=== PATIENT | female | born 1985 | race African-American/Black ===

== ENCOUNTER 2023-03-27 08:50 | Emergency (ER) | payer SELFPAY ==
--- OUTSIDE RECORDS SUMMARY | 2023-03-27 08:54 | XMS REPORT | Continuity of Care Document ---
:1985 Author Organization [facility] t Address [address] [place] [address] Care Team Providers Name Role Phone NONE, NONE Primary Care Physician Unavailable LUZ ELENA, DR CHURCHILL Attending Clinician Unavailable OLGA, DR JUSTIN Attending Clinician Unavailable Yann Attending Clinician Unavailable CHUCHO, DR SHANNAN Blood Attending Clinician Unavailable VICTOR M, DR ULIS CARLOS Deras Attending Clinician Unavailable , DR BERMUDEZ Attending Clinician Unavailable JAVIER, DR GAY Attending Clinician Unavailable RADHA YOO Attending Clinician Unavailable LUZ ELENA, DR CHURCHILL Admitting Clinician Unavailable OLGA, DR JUSTIN Admitting Clinician Unavailable Yann Admitting Clinician Unavailable CHUCHO, DR SHANNAN Blood Admitting Clinician Unavailable DR LUIS CARLOS DOW Admitting Clinician Unavailable , DR BERMUDEZ Admitting Clinician Unavailable JAVIER, DR GAY Admitting Clinician Unavailable RADHA YOO Admitting Clinician Unavailable Payers Payer Name Policy Type Policy Number Effective Date Expiration Date S ource 0700 [id number] 2022 00:00:00 0777 [id number] 1959 00:00:00 0450 [id number] 2018 00:00:00 Problems This patient has no known problems. Allergies, Adverse Reactions, Alerts Allergy Allergy Status Severity Reaction(s) Onset Inactive Treating Comm ents Source Name Type Date Date Clinician No Known DA Active Unknown [facility] 11-07 Medical Allergie 00:00: Center s 00 Medications This patient has no known medications. Vital Signs Vital Name Observation Time Observation Value Comments Source Height 2022-04-02 17:51:00 165.1 CM Weight 2022-04-02 17:51:00 93.89 KG Height 2022-01-30 10:45:00 165.1 CM Weight 2022-01-30 10:45:00 90.71 KG Height 2020-10-11 11:44:00 165.1 CM Weight 2020-10-11 11:44:00 93.44 KG Height 2020-07-17 11:30:00 165.1 CM Weight 2020-07-17 11:30:00 89.35 KG Height 2020-02-04 12:15:00 167.64 CM Weight 2020-02-04 12:15:00 81.64 KG Height 2019-07-04 09:46:00 165.1 CM Weight 2019-07-04 09:46:00 82.1 KG Height 2019-05-01 10:51:00 165.1 CM Weight 2019-05-01 10:51:00 81.19 KG Procedures This patient has no known procedures. Encounters Start End Encounter Admission Attending Care Care Encounter Source Date/Time Date/Time Type Type Clinicians Facility Department ID 2022-04-02 2022-04-02 Outpatient E LUZ ELENA, [facility] [id number] [facility] 17:17:00 21:05:00 ZHAO Cha [facility] 2022-01-30 2022-01-31 Outpatient E OLGA, [facility] [id number] [facility] 10:41:00 13:00:00 NHAN Medic al [place] 2021-06-21 2021-06-21 Outpatient Lezak_Kayla PAHOP [facility] [id number] [place] 00:00:00 00:00:00 [id number] [facility] 2021-06-19 2021-06-19 Outpatient Lezak_Kayla MEHOP [facility] 115 [id number]- [place] 04:42:00 04:42:00 [facility] 2021-06-15 2021-06-15 Outpatient Lezak_Kayla MEHOP [facility] 115 [id number]- [place] 04:28:00 04:28:00 [facility] 2021-06-132021-06-13 Outpatient Yann COLESHOP [facility] [id number] [place] 03:39:00 03:39:00 [facility] 2021-05-30 2021-05-30 Outpatient Yann LOO [facility] [id number] [place] 04:21:00 04:21:00 [facility] 2020-11-08 2020-11-08 Outpatient Yann PAHOP [facility] [id number] [place] 02:34:00 02:34:00 [id number] [facility] 2020-10-11 2020-10-11 Outpatient E CHUCHO [facility] [id number] [facility] 11:40:00 13:22:00 [facility] [place] 2020-07-17 2020-07-17 Outpatient E CHUCHO [facility] [id number] [facility] 11:26:00 13:50:00 [facility] [place] 2020-02-04 2020-02-04 Outpatient E VICTOR M, [facility] [id number] [facility] 12:11:00 12:55:00 LUIS CARLOS [facility] [place] 2019-07-04 2019-07-04 Outpatient E SHEIKH [facility] [id number] [facility] 09:40:00 15:56:00 WASIM [facility] [place] 2019-05-01 2019-05-01 Outpatient E VICTOR M [facility] [id number] [facility] 10:48:00 12:04:00 LUIS CARLOS [facility] [place] 2019-01-20 2019-01-20 Outpatient E VICTOR HUGO HERRERA [facility] [id number] [facility] 21:09:00 22:15:00 [facility] [place] 2018-10-02 2018-10-02 Emergency E [facility] [id number] [facility] 12:06:00 12:06:00 Results Test Description Test Time Test Comments Results Result [facility] e Comments XR CHEST 2 VIEW 2022-04-02 *OW* 18:54:45 [facility] CENTERName: JOHAN ADAME : 1985 Sex: F EXAM: CHEST 2 VIEWSINDICATION: PainCOMPARISON: None availableTECHNIQUE: PA and lateral views of the chest.FINDINGS: The cardiomediastinal silhouette is normal. The lungs are clear bilaterally. No pneumothorax or pleural effusion is identified. The osseous structures are unremarkable.IMPRESSION : No acute cardiopulmonary process.LOCATION: [id number] signed by: Yue Luong MD 04/02/2022 6:54 PM [employer] SARS-CoV (RAPID ANTIGEN) WH 2022-04-02 18:23:00 Test Item Value Reference Range Interpretation Comme nts SARS-CoV (ANTIGEN) (test code = NEGATIVE NEGATIVE COVAG) COVID AG (test code = COVAGC) This test has been marketed under the FDA Emergency Use Authorization (EUA) to meet challenges of the COVID-19 pandemic. The validation standards normally enforced by the FDA and the [employer] of the [place] [employer] (CAP) are more stringent than those required for this test. Therefore, the result should be interpreted with caution and close attention to other clinical and epidemiological data INFLUENZA A AND B OW2022-04-02 18:21:00 Test Item Value Reference Range Interpretation Comments INFLUENZ A (test code = INFA) NEGATIVE NEGATIVE INFLUENZ B (test code = INFB) NEGATIVE NEGATIVE SARS-CoV (RAPID ANTIGEN) WH2022-01-30 11:37:00 Test Item Value Reference Range Interpretation Comments SARS-CoV (ANTIGEN) NEGATIVE NEGATIVE (test code = COVAG) COVID AG (test This test has been code = COVAGC) marketed under the FDA Emergency Use Authorization (EUA) to meet challenges of the COVID-19 pandemic. The validation standards normally enforced by the FDA and the [employer] the [place] [employer] (CAP) are more stringent than those required for this test. Therefore, the result should be interpreted with caution and close attention to other clinical and epidemiological data TROPONIN I OW2022-01-30 11:35:00 Test Item Value Reference Range Interpretation Comments TROPONIN I (test <0.05 ng/mL See_Comment [Automated message] code = GTPI) The system [employer] generated this result transmitted ref erence range: <=0.05. The reference range was not used to int erpret this result as normal/abnormal . MetyLyte 8 Panel *OW* [id number] 11:29:00 Test Item Value Reference Range Interpretation Comments GLUCOSE (test code = GGUL) 100 mg/dL 73-118 BUN (test code = GBUN) 7 mg/dL 7-22 CREATININE (test code = GCRE) 1.0 mg/dL 0.6-1.2 CK TOTAL (test code = GCK) 87 U/L 30-190 SODIUM (test code = GNA+) 137 mmol/L 128-145 POTASSIUM (test code = GK+) 3.7 mmol/L 3.6-5.1 CHLORIDE (test code = GCL-) 102 mmol/L 98-108 TCO2 (test code = GTC02) 27 mmol/L 18-33 URINE OW2022-01-30 11:29:00 Test Item Value Reference Range Interpretation Comments PREG UR (test code = PGU) Negative NEGATIVE DRUGS OF ABUSE*OW*2022-01-30 11:23:00 Test Item Value Reference Range Interpretation Comments DRUG SCRN (test code URINE DRUG SCREEN = HDOA) This is an unconfirmed screening result and should not be used for non-medical purposes PHENCYCLID (test Negative NEGATIVE code = GPCP) BENZODIAZE (test Negative NEGATIVE code = GBZO) COCAINE (test code = Negative NEGATIVE GCOC) AMPHETAMIN (test Negative NEGATIVE code = GAMP) THC (test code = Positive NEGATIVE A GTHC) OPIATES (test code = Negative NEGATIVE BRITNEY) BARBITURAT (test Negative NEGATIVE code = GBAR) TCA (test code = Negative NEGATIVE GTCA) DOAH (test code = URINE DRUG DOAH) SCREEN CUT OFF VALUES Amphetamines 1000 ng/mL Barbituates 300 ng/mL Benzodiazepines 300 ng/mL Cocaine 300 ng/mL Opiates 300 ng/mL Phencyclidine 25 ng/mL THC 50 ng/mL Tricyclic Antidepressants 1000 ng/mL URINALYSIS W/O MICROSCOPICOW2022-01-30 11:23:00 Test Item Value Reference Range Interpretation Comments COLOR (test code = Yellow YELLOW COLU) CLARITY (test code = Clear CLEAR CLA) GLUCOSE UR (test Negative NEGATIVE code = UA GLUCOSE) BILI UR (test code = Negative NEGATIVE BILE) KETONES UR (test Negative NEGATIVE code = DEJAH) SP GRAVITY (test 1.025 1.005-1.030 code = SPGR) PH UR (test code = 6.5 4.5-8.0 PH) PROTEIN UR (test Negative NEGATIVE code = PU) NITRITE UR (test Negative NEGATIVE code = NITRITE) UROBIL UR (test code 0.2 E.U./dL = GUROQ) UROBIL UR (test code UROBILINOGEN = GUROQC) REFERENCE RANGE 0.2 - 1.0 EU/dL BLOOD UR (test code 3+ NEGATIVE A = UA BLOOD) LEUK ES UR (test Negative NEGATIVE code = LEUK) CBC (INCLUDES AUTOMATED DIFFERENTIAL) *2022-01-30 11:22:00 Test Item Value Reference Range Interpretation Comments WBC (test code = WBC) 5.9 10\S\3/uL 4.5-11.0 RBC (test code = RBC) 4.22 10\S\6/uL 4.30-5.70 L HGB (test code = HBG) 11.5 g/dL 12.0-15.5 L HCT (test code = HCT) 36.0 % 35.0-44.0 MCV (test code = MCV) 85.4 fL 81.0-99.0 MCH (test code = MCH) 27.3 pg 27.0-31.0 MCHC (test code = MCHC) 31.9 g/dL 32.0-36.0 L RDW (test code = RDW) 15.4 % 11.5-14.5 H PLT (test code = PLT) 300 10\S\3/uL 130-400 MPV (test code = OMPV) 7.7 fL 6.2-10.2 NEUTROP # (test code = NE#) 3.4 10\S\3/uL 1.6-8.0 LYMPH # (test code = LY#) 1.9 10\S\3/uL 1.1-3.5 MID # (test code = GMID#) 0.6 10\S\3/uL 0.0-1.1 GRAN % (test code = GRA%) 58.0 % 35.0-73.0 LYMPH % (test code = GLY%) 32.0 % 20.0-55.0 MID % (test code = GMID%) 10.0 % 0.0-10.0 D-DIMER TRIAGE OW2020-10-11 13:08:00 Test Item Value Reference Range Interpretation Comments D-DIMER (test code 179 ng/mL D-DU See_Comment [Autom ated message] = GDDI) The system [employer] generated this result transmitted ref erence range: <=599. T he reference range was not used to int erpret this result as normal/abnormal . D-DIMER COMMENT *Level to rule (test code = out DVT or PE: DDCOM) <235 ng/mL D-DU* TROPONIN I OW2020-10-11 13:00:00 Test Item Value Reference Range Interpretation Comments TROPONIN I (test code = A84) <0.050 ng/mL 0.000-0.050 MetyLyte 8 Panel *OW* [id number] 12:52:00 Test Item Value Reference Range Interpretation Comments GLUCOSE (test code = GGUL) 93 mg/dL 73-118 BUN (test code = GBUN) 10 mg/dL 7-22 CREATININE (test code = GCRE) 1.0 mg/dL 0.6-1.2 CK TOTAL (test code = GCK) 69 U/L 30-190 SODIUM (test code = GNA+) 140 mmol/L 128-145 POTASSIUM (test code = GK+) 3.8 mmol/L 3.6-5.1 CHLORIDE (test code = GCL-) 107 mmol/L 98-108 TCO2 (test code = GTC02) 28 mmol/L 18-33 GENERAL CHEMISTRY 13 *OW* [id number] 12:52:00 Test Item Value Reference Range Interpretation Comments GLUCOSE (test code = GGUL) 93 mg/dL 73-118 BUN (test code = GBUN) 10 mg/dL 7-22 CREATININE (test code = GCRE) 1.0 mg/dL 0.6-1.2 URIC ACID (test code = GUA) 2.7 mg/dL 2.2-6.6 CALCIUM (test code = GCL+) 9.3 mg/dL 8.0-10.3 ALBUMIN (test code = GALB) 3.3 g/dL 3.5-5.5 L PROTEIN (test code = GTP) 6.3 g/dL 6.4-8.1 L ALT (test code = GALT) 7 U/L 10-47 L AST (test code = TIFFANI) 16 U/L 11-38 ALK PHOS (test code = GALP) 54 U/L 42-141 BILI TOTAL (test code = GTBIL) 0.4 mg/dL 0.2-1.6 GGT (test code = GGGT) 8 U/L 5-65 AMYLASE (test code = GAMY) 35 U/L 14-97 CBC (INCLUDES AUTOMATED DIFFERENTIAL) *2020-10-11 12:42:00 Test Item Value Reference Range Interpretation Comments WBC (test code = WBC) 7.2 10\S\3/uL 4.5-11.0 RBC (test code = RBC) 4.42 10\S\6/uL 4.30-5.70 HGB (test code = HBG) 12.7 g/dL 12.0-15.5 HCT (test code = HCT) 40.6 % 35.0-44.0 MCV (test code = MCV) 91.9 fL 81.0-99.0 MCH (test code = MCH) 28.7 pg 27.0-31.0 MCHC (test code = MCHC) 31.3 g/dL 32.0-36.0 L RDW (test code = RDW) 14.6 % 11.5-14.5 H PLT (test code = PLT) 258 10\S\3/uL 130-400 MPV (test code = OMPV) 7.6 fL 6.2-10.2 NEUTROP # (test code = NE#) 4.7 10\S\3/uL 1.6-8.0 LYMPH # (test code = LY#) 1.7 10\S\3/uL 1.1-3.5 MID # (test code = GMID#) 0.8 10\S\3/uL 0.0-1.1 GRAN % (test code = GRA%) 65.6 % 35.0-73.0 LYMPH % (test code = GLY%) 23.0 % 20.0-55.0 MID % (test code = GMID%) 11.4 % 0.0-10.0 H PROTHROMBIN TIME i-STAT OW2020-10-11 12:40:00 Test Item Value Reference Range Interpretation Comments PT (test code = 12.2 s 10.0-13.0 PT1) INR (test code = 1.0 INR) INRH (test code = SUGGESTED THERAPEUTIC INRH) RANGE FOR INR: 2.5 - 3.5 For Patients with Prosthetic Valves or Patients with recurrent Thromboembolic Events 2.0 - 3.0 For Most Other Applications URINE OW2020-07-17 12:57:00 Test Item Value Reference Range Interpretation Comments PREG UR (test code = PGU) Negative NEGATIVE DRUGS OF ABUSE*OW*2020-07-17 12:56:00 Test Item Value Reference Range Interpretation Comments DRUG SCRN (test code URINE DRUG SCREEN = HDOA) This is an unconfirmed screening result and should not be used for non-medical purposes PHENCYCLID (test Negative NEGATIVE code = GPCP) BENZODIAZE (test Negative NEGATIVE code = GBZO) COCAINE (test code = Negative NEGATIVE GCOC) AMPHETAMIN (test Negative NEGATIVE code = GAMP) THC (test code = Positive NEGATIVE A GTHC) OPIATES (test code = Negative NEGATIVE BRITNEY) BARBITURAT (test Negative NEGATIVE code = GBAR) TCA (test code = Negative NEGATIVE GTCA) DOAH (test code = URINE DRUG DOAH) SCREEN CUT OFF VALUES Amphetamines 1000 ng/mL Barbituates 300 ng/mL Benzodiazepines 300 ng/mL Cocaine 300 ng/mL Opiates 300 ng/mL Phencyclidine 25 ng/mL THC 50 ng/mL Tricyclic Antidepressants 1000 ng/mL URINALYSIS W/O MICROSCOPICOW2020-07-17 12:52:00 Test Item Value Reference Range Interpretation Comments COLOR (test code [place] YELLOW A Previously = COLU) reported as: Yellow On 07/17/2020 12:5 2 By BRAL CLARITY (test Clear CLEAR code = CLA) GLUCOSE UR (test Negative NEGATIVE code = UA GLUCOSE) BILI UR (test Negative NEGATIVE code = BILE) KETONES UR (test Negative NEGATIVE code = DEJAH) SP GRAVITY (test 1.025 1.005-1.030 code = SPGR) PH UR (test code 7.0 4.5-8.0 = PH) PROTEIN UR (test 1+ NEGATIVE A code = PU) NITRITE UR (test Negative NEGATIVE code = NITRITE) UROBIL UR (test 0.2 E.U./dL code = GUROQ) UROBIL UR (test UROBILINOGEN code = GUROQC) REFERENCE RANGE 0.2 - 1.0 EU/dL BLOOD UR (test 3+ NEGATIVE A code = UA BLOOD) LEUK ES UR (test Trace NEGATIVE code = LEUK) SARS-CoV (RAPID ANTIGEN) WH2020-07-17 12:33:00 Test Item Value Reference Range Interpretation Comments SARS-CoV (ANTIGEN) NEGATIVE NEGATIVE (test code = COVAG) COVID AG (test This test has been code = COVAGC) marketed under the FDA Emergency Use Authorization (EUA) to meet challenges of the COVID-19 pandemic. The validation standards normally enforced by the FDA and the [employer] of the [place] [employer] (CAP) are more stringent than those required for this test. Therefore, the result should be interpreted with caution and close attention to other clinical and epidemiological data BRAIN NATRIURETIC PEPTIDE OW2020-07-17 12:13:00 Test Item Value Reference Range Interpretation Comments BNP (test code = 25 pg/mL See_Comment [Automated message] The OBNP) system which ge nerated this result tra nsmitted reference range : <=100. The reference r nikia was not used to int erpret this result as sukumar l/abnormal. D-DIMER TRIAGE OW2020-07-17 12:10:00 Test Item Value Reference Range Interpretation Comments D-DIMER (test code 170 ng/mL D-DU See_Comment [Autom ated message] = GDDI) The system [employer] generated this result transmitted ref erence range: <=599. T he reference range was not used to int erpret this result as normal/abnormal . D-DIMER COMMENT *Level to rule (test code = out DVT or PE: DDCOM) <235 ng/mL D-DU* TROPONIN I OW2020-07-17 12:10:00 Test Item Value Reference Range Interpretation Comments TROPONIN I (test code = A84) <0.050 ng/mL 0.000-0.050 MetyLyte 8 Panel *OW* [id number] 12:09:00 Test Item Value Reference Range Interpretation Comments GLUCOSE (test code = GGUL) 99 mg/dL 73-118 BUN (test code = GBUN) 8 mg/dL 7-22 CREATININE (test code = GCRE) 0.8 mg/dL 0.6-1.2 CK TOTAL (test code = GCK) 67 U/L 30-190 SODIUM (test code = GNA+) 140 mmol/L 128-145 POTASSIUM (test code = GK+) 4.0 mmol/L 3.6-5.1 CHLORIDE (test code = GCL-) 110 mmol/L 98-108 H TCO2 (test code = GTC02) 28 mmol/L 18-33 GENERAL CHEMISTRY 13 *OW* [id number] 12:09:00 Test Item Value Reference Range Interpretation Comments GLUCOSE (test code = GGUL) 99 mg/dL 73-118 BUN (test code = GBUN) 8 mg/dL 7-22 CREATININE (test code = GCRE) 0.8 mg/dL 0.6-1.2 URIC ACID (test code = GUA) 3.2 mg/dL 2.2-6.6 CALCIUM (test code = GCL+) 8.8 mg/dL 8.0-10.3 ALBUMIN (test code = GALB) 3.6 g/dL 3.5-5.5 PROTEIN (test code = GTP) 6.5 g/dL 6.4-8.1 ALT (test code = GALT) <5 U/L 10-47 L AST (test code = TIFFANI) 15 U/L 11-38 ALK PHOS (test code = GALP) 52 U/L 42-141 BILI TOTAL (test code = GTBIL) 0.5 mg/dL 0.2-1.6 GGT (test code = GGGT) 9 U/L 5-65 AMYLASE (test code = GAMY) 39 U/L 14-97 CBC (INCLUDES AUTOMATED DIFFERENTIAL) *2020-07-17 11:56:00 Test Item Value Reference Range Interpretation Comments WBC (test code = WBC) 5.1 10\S\3/uL 4.5-11.0 RBC (test code = RBC) 4.11 10\S\6/uL 4.30-5.70 L HGB (test code = HBG) 11.8 g/dL 12.0-15.5 L HCT (test code = HCT) 38.1 % 35.0-44.0 MCV (test code = MCV) 92.6 fL 81.0-99.0 MCH (test code = MCH) 28.7 pg 27.0-31.0 MCHC (test code = MCHC) 31.0 g/dL 32.0-36.0 L RDW (test code = RDW) 13.2 % 11.5-14.5 PLT (test code = PLT) 278 10\S\3/uL 130-400 MPV (test code = OMPV) 7.5 fL 6.2-10.2 NEUTROP # (test code = NE#) 3.0 10\S\3/uL 1.6-8.0 LYMPH # (test code = LY#) 1.6 10\S\3/uL 1.1-3.5 MID # (test code = GMID#) 0.5 10\S\3/uL 0.0-1.1 GRAN % (test code = GRA%) 58.3 % 35.0-73.0 LYMPH % (test code = GLY%) 31.4 % 20.0-55.0 MID % (test code = GMID%) 10.3 % 0.0-10.0 H ALCOHOL BLOOD (ETOH)2019-07-04 12:06:00 Test Item Value Reference Range Interpretation Comments ETOH (test code = HALC) ETHANOL The result is to be used only for medical purposes ALCOHOL (test code = <10 mg/dL <=10 56A) [id number] 12:02:00 Test Item Value Reference Range Interpretation Comments ACETAMINPH (test code = 94M) <2.0 ug/mL 10.0-30.0 L [id number] 11:57:00 Test Item Value Reference Range Interpretation Comments SALICYLATE (test code = 94B) 6.7 mg/dL 2.8-20.0 GENERAL CHEMISTRY 13 *OW* [id number] 10:30:00 Test Item Value Reference Range Interpretation Comments GLUCOSE (test code = GGUL) 93 mg/dL 73-118 BUN (test code = GBUN) 10 mg/dL 7-22 CREATININE (test code = GCRE) 0.9 mg/dL 0.6-1.2 URIC ACID (test code = GUA) 2.2 mg/dL 2.2-6.6 CALCIUM (test code = GCL+) 8.8 mg/dL 8.0-10.3 ALBUMIN (test code = GALB) 3.5 g/dL 3.5-5.5 PROTEIN (test code = GTP) 6.7 g/dL 6.4-8.1 ALT (test code = GALT) 8 U/L 10-47 L AST (test code = TIFFANI) 18 U/L 11-38 ALK PHOS (test code = GALP) 45 U/L 42-141 BILI TOTAL (test code = GTBIL) 0.6 mg/dL 0.2-1.6 GGT (test code = GGGT) 8 U/L 5-65 AMYLASE (test code = GAMY) 38 U/L 14-97 DRUGS OF ABUSE*OW*2019-07-04 10:23:00 Test Item Value Reference Range Interpretation Comments DRUG SCRN (test code URINE DRUG SCREEN = HDOA) This is an unconfirmed screening result and should not be used for non-medical purposes PHENCYCLID (test Negative NEGATIVE code = GPCP) BENZODIAZE (test Negative NEGATIVE code = GBZO) COCAINE (test code = Negative NEGATIVE GCOC) AMPHETAMIN (test Negative NEGATIVE code = GAMP) THC (test code = Positive NEGATIVE A GTHC) OPIATES (test code = Negative NEGATIVE BRITNEY) BARBITURAT (test Negative NEGATIVE code = GBAR) TCA (test code = Negative NEGATIVE GTCA) DOAH (test code = URINE DRUG DOAH) SCREEN CUT OFF VALUES Amphetamines 1000 ng/mL Barbituates 300 ng/mL Benzodiazepines 300 ng/mL Cocaine 300 ng/mL Opiates 300 ng/mL Phencyclidine 25 ng/mL THC 50 ng/mL Tricyclic Antidepressants 1000 ng/mL MetyLyte 8 Panel *OW* [id number] 10:14:00 Test Item Value Reference Range Interpretation Comments GLUCOSE (test code = GGUL) 91 mg/dL 73-118 BUN (test code = GBUN) 10 mg/dL 7-22 CREATININE (test code = GCRE) 0.8 mg/dL 0.6-1.2 CK TOTAL (test code = GCK) 76 U/L 30-190 SODIUM (test code = GNA+) 139 mmol/L 128-145 POTASSIUM (test code = GK+) 3.7 mmol/L 3.6-5.1 CHLORIDE (test code = GCL-) 107 mmol/L 98-108 TCO2 (test code = GTC02) 26 mmol/L 18-33 URINALYSIS W/O MICROSCOPICOW2019-07-04 10:14:00 Test Item Value Reference Range Interpretation Comments COLOR (test code = Yellow YELLOW COLU) CLARITY (test code = Clear CLEAR CLA) GLUCOSE UR (test Negative NEGATIVE code = UA GLUCOSE) BILI UR (test code = Negative NEGATIVE BILE) KETONES UR (test Negative NEGATIVE code = DEJAH) SP GRAVITY (test 1.020 1.005-1.030 code = SPGR) PH UR (test code = 6.0 4.5-8.0 PH) PROTEIN UR (test Negative NEGATIVE code = PU) NITRITE UR (test Negative NEGATIVE code = NITRITE) UROBIL UR (test code 0.2 E.U./dL = GUROQ) UROBIL UR (test code UROBILINOGEN = GUROQC) REFERENCE RANGE 0.2 - 1.0 EU/dL BLOOD UR (test code 2+ NEGATIVE A = UA BLOOD) LEUK ES UR (test 1+ NEGATIVE A code = LEUK) URINE OW2019-07-04 10:11:00 Test Item Value Reference Range Interpretation Comments PREG UR (test code = PGU) Negative NEGATIVE CBC (INCLUDES AUTOMATED DIFFERENTIAL) *2019-07-04 10:04:00 Test Item Value Reference Range Interpretation Comments WBC (test code = WBC) 6.1 10\S\3/uL 4.5-11.0 RBC (test code = RBC) 3.96 10\S\6/uL 4.30-5.70 L HGB (test code = HBG) 11.8 g/dL 12.0-15.5 L HCT (test code = HCT) 36.4 % 35.0-44.0 MCV (test code = MCV) 92.0 fL 81.0-99.0 MCH (test code = MCH) 29.8 pg 27.0-31.0 MCHC (test code = MCHC) 32.4 g/dL 32.0-36.0 RDW (test code = RDW) 14.0 % 11.5-14.5 PLT (test code = PLT) 267 10\S\3/uL 130-400 MPV (test code = OMPV) 7.8 fL 6.2-10.2 NEUTROP # (test code = NE#) 3.4 10\S\3/uL 1.6-8.0 LYMPH # (test code = LY#) 2.1 10\S\3/uL 1.1-3.5 MID # (test code = GMID#) 0.6 10\S\3/uL 0.0-1.1 GRA % (test code = GRA%) 55.9 % 35.0-73.0 LYMPH % (test code = GLY%) 34.6 % 20.0-55.0 MID % (test code = GMID%) 9.5 % 0.0-10.0 INFLUENZA A AND B OW2019-05-01 11:08:00 Test Item Value Reference Range Interpretation Comments INFLUENZ A (test code = INFA) NEGATIVE NEGATIVE INFLUENZ B (test code = INFB) NEGATIVE NEGATIVE DIRECT STREP GROUP AOW2019-05-01 11:08:00 Test Item Value Reference Range Interpretation Comments STREP A AG (test code = STREP) NEGATIVE NEGATIVE XR KNEE LEFT 3 VIEWS *OW*2019-01-20 21:48:23LOCATION: [id number]: 33-year-old female who suffered a fall, injuring her left knee.COMMENT: Frontal, oblique, and crosstable lateral radiographs of the left knee wereobtained.The skeleton is intact, and normally mineralized. The joint spaces are wellmaintained. The soft tissues are unremarkable. IMPRESSION:Unremarkable radiographic examination of the left knee.XR CHEST 2 VIEW *WW*2017-02-01 07:29:51Location code: [id number]: chest painTECHNIQUE: Frontal and lateral views of the chest were obtained.C omparison to March 2012FINDINGS: The cardiomediastinal silhouette is unremarkable. The trachea ismidline. The lungs are clear. There is no effusion or pneumothorax. The bonesare intact.IMPRESSION: No acute pulmonary process.
[2023-03-27 09:50] LABS: SARS-CoV-2 Antigen Rapid Res Negative (Negative)
[2023-03-27] MEDS ORDERED: ONDANSETRON 4 MG (ODT) TAB ONE (10:12)
[2023-03-27] MEDS ORDERED: ALBUTEROL 2.5 MG/3 ML NEB SOL ONE (10:12)
--- NOTE | 2023-03-27 11:01 | RAD REPORT ---
EXAM DESCRIPTION: Donovan Single View03/27/2023 10:10 am CLINICAL HISTORY: Chest pain COMPARISON: none FINDINGS: The mid lungs are hazy bilaterally. The heart is normal size IMPRESSION: Mid lungs are hazy bilaterally. This could be secondary to overlying soft tissue or infi ltrates. PA and lateral chest series recommended
--- NOTE | 2023-03-27 12:13 | RAD REPORT ---
EXAM DESCRIPTION: Donovan Collins (2 Views)03/27/2023 11:57 am CLINICAL HISTORY: Chest pain COMPARISON: March 27, 2023 FINDINGS: The lungs appear clear of acute infiltrate. The heart is normal size IMPRESSION: No acute abnormalities displayed
--- NOTE | 2023-03-27 12:15 | ER ---
Nurse's Notes [facility] Name: Elisa Mesa Age: 37 yrs Sex: Female : 1985 Arrival Date: 03/27/2023 Time: 08:50 Bed 12 Private MD: Diagnosis: Influenza B Presentation: 03/27 08:57 Chief complaint: Patient states: she started having flu symptoms this morning. patient ap3 complains of fever, cough, congestion, SOB. Coronavirus screen: Client presents with at least one sign or symptom that may indicate coronavirus-19. Ebola Screen: No symptoms or risks identified at this time. Initial Sepsis Screen: Does the patient meet any 2 criteria? No. Patient's initial sepsis screen is negative. Does the patient have a suspected source of infection? No. Patient's initial sepsis screen is negative. Risk Assessment: Do you want to hurt yourself or someone else? Patient reports no desire to harm self or others. Onset of symptoms was March 27, 2023. 08:57 Method Of Arrival: Ambulatory ap3 08:57 Acuity: LINDSEY 4 ap3 Triage Assessment: 08:58 General: Appears ill, Behavior is calm, cooperative, appropriate for age, Reports ap3 chills for fever for feeling ill for fatigue for. Pain: Complains of pain in head and generalized body aches. Neuro: Level of Consciousness is awake, alert, obeys commands, Oriented to person, place, time, situation, Appropriate for age. Cardiovascular: Patient's skin is warm and dry. Respiratory: Reports cough that is Airway is patent Respiratory effort is even, unlabored, Respiratory pattern is regular, symmetrical. 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 - Social history:: Smoking status: Patient denies any tobacco usage or history of. Screenin:58 [facility] ED Fall Risk Assessment (Adult) History of falling in the last 3 months, ap3 including since admission No falls in past 3 months (0 pts). Abuse screen: Denies threats or abuse. Nutritional screening: No deficits noted. Tuberculosis screening: No symptoms or risk factors identified. Vital Signs: 08:57 BP 126 / 84; Pulse 72; Resp 19; Temp 97.9; Pulse Ox 100% ; Weight 94.8 kg; Pain 9/10; ap3 08:57 Pain Scale: Adult ap3 ED Course: 08:52 Patient arrived in ED. rg4 08:52 Stephanie Diego [facility]-C [facility] sb4 08:52 Zachary Cooper DO is Attending Physician. sb4 08:58 Triage completed. ap3 08:58 Arm band placed on right wrist. ap3 09:05 Patient has correct armband on for positive identification. Bed in low position. Call ap3 light in reach. Pulse ox on. NIBP on. Warm blanket given. 09:33 COVID swab sent to lab. Flu and/or RSV swab sent to lab. em1 10:14 Chest Single View In Process Unspecified. EDMS 11:40 Chest Pa And Lat (2 Views) Sent. sb4 11:58 Chest Pa And Lat (2 Views) In Process Unspecified. EDMS 12:33 No provider procedures requiring assistance completed. Patient did not have IV access ap3 during this emergency room visit. 12:34 Provided Education on: discharge instructions . ap3 Administered Medications: 10:08 Drug: Albuterol Inhalation 1.25 mg Inhalation once Route: Inhalation; ap3 12:16 Not Given (Patient Refused): Ondansetron Oral Disintegrating Tablet 4 mg PO once ap3 Medication: 08:59 VIS not applicable for this client. ap3 Outcome: 12:14 Discharge ordered by . sb4 12:33 Discharged to home ap3 12:33 Condition: good 12:33 Discharge instructions given to patient, Instructed on discharge instructions, follow up and referral plans. medication usage, Demonstrated understanding of instructions, follow-up care, medications, Prescriptions given X 2, 12:34 Patient left the ED. ap3 Signatures: Dispatcher [employer] EDMS Reynold Worrell em1 Alexandra Tarango rg4 Claudia Cavazos, RN RN ap3 Stephanie Diego PA-C PA-C sb4
--- NOTE | 2023-03-27 12:15 | EDPHYS ---
Physician Documentation [facility] Name: Elisa Mesa Age: 37 yrs Sex: Female : 1985 Arrival Date: 03/27/2023 Time: 08:50 Bed 12 Private MD: ED Physician Zachary Cooper HPI: 03/27 09:17 This 37 yrs old Black Female presents to ER via Ambulatory with complaints of Flu sb4 Symptoms. 09:17 Patient states that she started experiencing chest tightness, shortness of breath, sb4 congestion, cough, nausea this morning. She states that her son has the flu. She denies any pertinent medical history. She states that she has never been formally diagnosed with asthma but feels like she has been wheezing. Denies any fever chills. 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 - Social history:: Smoking status: Patient denies any tobacco usage or history of. ROS: 09:17 Constitutional: Negative for fever, chills, and weight loss, sb4 09:17 ENT: Positive for nasal discharge, sinus congestion, 09:17 Cardiovascular: Positive for chest pain, 09:17 Respiratory: Positive for cough, shortness of breath, wheezing, 09:17 All other systems are negative, Exam: 09:17 Constitutional: This is a well developed, well nourished patient who is awake, alert, sb4 and in no acute distress. Head/Face: Normocephalic, atraumatic. Eyes: Extra-ocular motions intact. Periorbital areas with no swelling, redness, or edema. ENT: Mucous membranes moist. Cardiovascular: Regular rate and rhythm with a normal S1 and S2. Abdomen/GI: Soft, non-tender, no distension. Skin: Warm, dry with normal turgor. Normal color with no rashes, no lesions, and no evidence of cellulitis. MS/ Extremity: Pulses equal, no cyanosis. Neurovascular intact. Full, normal range of motion. Neuro: Awake and alert, GCS 15, oriented to person, place, time, and situation. Motor strength 5/5 in all extremities. Sensory grossly intact. 09:17 Respiratory: the patient does not display signs of respiratory distress, Respirations: normal, no acute changes, Breath sounds: wheezing: expiratory is scattered, Respiratory rate: 19 Vital Signs: 08:57 BP 126 / 84; Pulse 72; Resp 19; Temp 97.9; Pulse Ox 100% ; Weight 94.8 kg; Pain 9/10; ap3 08:57 Pain Scale: Adult ap3 MDM: 08:54 Patient medically screened. sb4 09:17 Differential diagnosis: COVID, flu, asthma, pneumonia, bronchitis, upper respiratory sb4 infection. 12:18 Data reviewed: vital signs, nurses notes, lab test result(s), radiologic studies, and sb4 as a result, I will discharge patient. Counseling: I had a detailed discussion with the patient and/or guardian regarding the historical points, exam findings, and any diagnostic results supporting the discharge/admit diagnosis, lab results, radiology results, to return to the emergency department if symptoms worsen or persist or if there are any questions or concerns that arise at home. 03/27 09:07 Order name: SARS RAPID sb4 03/27 09:07 Order name: Flu sb4 03/27 09:36 Order name: SARS-COV-2 Antigen Rapid; Complete Time: 09:51 EDMS 03/27 09:36 Order name: Influenza Screen (A ; Complete Time: 10:05 EDMS 03/27 09:45 Order name: Chest Single View; Complete Time: 11:06 EDMS 03/27 11:29 Order name: Chest Pa And Lat (2 Views); Complete Time: 12:14 EDMS Administered Medications: 10:08 Drug: Albuterol Inhalation 1.25 mg Inhalation once Route: Inhalation; ap3 12:16 Not Given (Patient Refused): Ondansetron Oral Disintegrating Tablet 4 mg PO once ap3 Disposition: 09:50 I was immediately available on-site in the Emergency Department for consultation in the ms3 care of the patient. Disposition Summary: 03/27/23 12:14 Discharge Ordered Notes: Location: Home sb4 Problem: new sb4 Symptoms: have improved sb4 Condition: Stable sb4 Diagnosis - Influenza B sb4 Followup: sb4 - With: Emergency Department - When: As needed - Reason: Trouble breathing, Worsening of condition Discharge Instructions: - Discharge Summary Sheet sb4 - Influenza, Adult, [id number] sb4 Forms: - Work release form ap3 - Medication Reconciliation Form sb4 - Thank You Letter sb4 - Antibiotic Education sb4 - Prescription Opioid Use sb4 - Patient Portal Instructions sb4 - Leadership Thank You Letter sb4 Prescriptions: - albuterol sulfate 90 mcg/actuation Inhalation HFA Aerosol Inhaler - inhale 2 inhalation INHALATION route every 4 to 6 hours as needed for sb4 bronchospasm/wheezing; 1 Applicator; Refills: 0, Product Selection Permitted - Tamiflu 75 mg Oral capsule - take 1 tablet ORAL route every 12 hours for 5 days; 10 capsule; Refills: 0, sb4 Product Selection Permitted Signatures: Dispatcher [employer] Claudia Pierre RN RN ap3 Zachary Cooper, DO ms3 Stephanie Diego, PAJenniferC PA-C sb4 Corrections: (The following items were deleted from the chart) 11:57 11:47 Chest Pa And Lat (2 Views)+RAD.RAD.BRZ ordered. EDNJ EDMS
[2023-03-27 12:38] VITALS: BP 126/84; TEMP 97.9; O2SAT 100
== END 2023-03-27 12:34 | disposition home or self-care (01) ==
LOC: ER 08:50
DX: J10.1 Influenza due to other identified influenza virus with other respiratory manifestations (principal)
CPT/HCPCS: 36415; 71045; 71046; 87804; 87811; 99284; J7613; Q0162

== ENCOUNTER 2023-03-28 10:17 | Emergency (ER) | payer SELFPAY ==
--- OUTSIDE RECORDS SUMMARY | 2023-03-28 10:20 | XMS REPORT | Continuity of Care Document ---
:1985 Author Organization [facility] t Address [address] [place] [address] Care Team Providers Name Role Phone NONE, NONE Primary Care Physician Unavailable LUZ ELENA, DR CHURCHILL Attending Clinician Unavailable OLGA, DR JUSTIN Attending Clinician Unavailable Yann Attending Clinician Unavailable CHUCHO, DR SHANNAN Blood Attending Clinician Unavailable VICTOR M, DR LUIS CARLOS Deras Attending Clinician Unavailable , DR [...] Effective Date Expiration Date S ource 0700 [id number] 2022 00:00:00 0777 [id number] 1959 00:00:00 0450 [id number] 2018 00:00:00 Problems This patient has no [...] ID 2022-04-02 2022-04-02 Outpatient E LUZ ELENA, [facility] [id number] [facility] 17:17:00 21:05:00 ZHAO Cha [facility] 2022-01-30 2022-01-31 Outpatient E OLGA, [facility] [id number] [facility] 10:41:00 13:00:00 NHAN Medic al [facility] 2021-06-21 2021-06-21 Outpatient Lezak_Kayla NHHOP [facility] 115 594- [place] 00:00:00 00:00:00 [id number] [facility] 2021-06-19 2021-06-19 Outpatient Lezak_Kayla MEHOP [facility] 115 594- [place] 04:42:00 04:42:00 [facility] 2021-06-15 2021-06-15 Outpatient Lezak_Kayla MEHOP [facility] 115 594- [place] 04:28:00 04:28:00 [facility] 2021-06-132021-06-13 Outpatient Yann COLESHOP [facility] [id number] [place] 03:39:00 03:39:00 [facility] 2021-05-30 2021-05-30 Outpatient Yann LOO [facility] [id number] [place] 04:21:00 04:21:00 [facility] 2020-11-08 2020-11-08 Outpatient Yann NHHOP [facility] [id number] [place] 02:34:00 02:34:00 [id number] [facility] 2020-10-11 2020-10-11 Outpatient E CHUCHO [facility] [id number] [facility] 11:40:00 13:22:00 [facility] Medica l Conrad 2020-07-17 2020-07-17 Outpatient E CHUCHO [facility] [id number] [place] 11:26:00 13:50:00 [facility] Medica l Conrad 2020-02-04 2020-02-04 Outpatient E VICTOR M, [facility] [id number] [facility] 12:11:00 12:55:00 LUIS CARLOS [facility] 2019-07-04 2019-07-04 Outpatient E SHEIKH [facility] [id number] [facility] 09:40:00 15:56:00 WASIM [facility] 2019-05-01 2019-05-01 Outpatient E VICTOR M [facility] [id number] [facility] 10:48:00 12:04:00 LUIS CARLOS [facility] 2019-01-20 2019-01-20 Outpatient E VICTOR HUGO HERRERA [facility] [id number] [facility] 21:09:00 22:15:00 Medica l [facility] 2018-10-02 2018-10-02 Emergency E [facility] [id number] [facility] 12:06:00 12:06:00 Results Test Description Test Time Test Comments Results Result [facility] e Comments XR CHEST 2 VIEW 2022-04-02 *OW* 18:54:45 [facility] CENTERName: JOHAN ADAME : 1985 Sex: F EXAM: CHEST 2 VIEWSINDICATION: PainCOMPARISON: None availableTECHNIQUE: PA and lateral views of the chest.FINDINGS: The cardiomediastinal silhouette is normal. The lungs are clear bilaterally. No pneumothorax or pleural effusion is identified. 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 The validation standards normally enforced by the FDA and the College of the [place] [employer] (CAP) are more stringent than those [...] the FDA and the College of the [place] [employer] (CAP) are more stringent than those required for this test. Therefore, the result should be interpreted with caution and close attention to other clinical and epidemiological data TROPONIN I OW2022-01-30 11:35:00 Test Item Value Reference Range Interpretation Comments TROPONIN I (test <0.05 ng/mL See_Comment [Automated message] code = GTPI) The system My1login generated this result transmitted ref erence range: <=0.05. The reference range was not used to int erpret this result as normal/abnormal . MetyLyte 8 Panel *OW* [id number] 11:29:00 Test Item Value Reference Range Interpretation [...] [Autom ated message] = GDDI) The system My1login generated this result transmitted ref erence range: <=599. T he reference range was not used to int erpret this result as normal/abnormal . D-DIMER COMMENT *Level to rule (test code = out DVT or PE: DDCOM) <235 ng/mL D-DU* TROPONIN I OW2020-10-11 13:00:00 Test Item Value Reference Range Interpretation Comments TROPONIN I (test code = A84) <0.050 ng/mL 0.000-0.050 MetyLyte 8 Panel *OW* [id number] 12:52:00 Test Item Value Reference Range Interpretation [...] 28 mmol/L 18-33 GENERAL CHEMISTRY 13 *OW* [id number] 12:52:00 Test Item Value Reference Range Interpretation [...] Reference Range Interpretation Comments COLOR (test code [place] YELLOW A Previously = COLU) reported as: [...] the FDA and the College of the [place] [employer] (CAP) are more stringent than those [...] [Autom ated message] = GDDI) The system [employer] h generated this result transmitted ref erence [...] <0.050 ng/mL 0.000-0.050 MetyLyte 8 Panel *OW* [id number] 12:09:00 Test Item Value Reference Range Interpretation [...] 28 mmol/L 18-33 GENERAL CHEMISTRY 13 *OW* [id number] 12:09:00 Test Item Value Reference Range Interpretation [...] (test code = <10 mg/dL <=10 56A) [id number] 12:02:00 Test Item Value Reference Range Interpretation Comments ACETAMINPH (test code = 94M) <2.0 ug/mL 10.0-30.0 L [id number] 11:57:00 Test Item Value Reference Range Interpretation Comments SALICYLATE (test code = 94B) 6.7 mg/dL 2.8-20.0 GENERAL CHEMISTRY 13 *OW* [id number] 10:30:00 Test Item Value Reference Range Interpretation [...] Antidepressants 1000 ng/mL MetyLyte 8 Panel *OW* [id number] 10:14:00 Test Item Value Reference Range Interpretation [...] XR KNEE LEFT 3 VIEWS *OW*2019-01-20 21:48:23LOCATION: [id number]: 33-year-old female who suffered a fall, injuring her left knee.COMMENT: Frontal, oblique, and crosstable lateral radiographs of the left knee wereobtained.The skeleton is intact, and normally mineralized. The joint spaces are wellmaintained. The soft tissues are unremarkable. IMPRESSION:Unremarkable radiographic examination of the left knee.XR CHEST 2 VIEW *WW*2017-02-01 07:29:51Location code: [id number]: chest painTECHNIQUE: Frontal and lateral views of the chest were obtained.C omparison to March 2012FINDINGS: The cardiomediastinal silhouette is unremarkable. The trachea ismidline. The lungs are clear. There is no effusion or pneumothorax. The bonesare intact.IMPRESSION: No acute pulmonary process.
--- NOTE | 2023-03-28 10:28 | ER ---
Nurse's Notes [facility] Name: Elisa Mesa Age: 37 yrs Sex: Female : 1985 Arrival Date: 03/28/2023 Time: 10:17 Bed 20 Private MD: None, None Diagnosis: Influenza B;Fever, unspecified;Myalgia Presentation: 03/28 10:23 Chief complaint: Patient states: Seen here yesterday for flu. Pain, cough is getting ll1 worse. Still has fever. Sore to even walk. Coronavirus screen: Vaccine status: Patient reports being unvaccinated. Client denies travel out of the [place] in the last 14 days. congestion, cough unrelated to allergies, fatigue, fever, headache, Client presents with at least one sign or symptom that may indicate coronavirus-19. Standard/surgical mask placed on the client. Ebola Screen: Patient denies travel to an Ebola-affected area in the 21 days before illness onset. Initial Sepsis Screen: Does the patient meet any 2 criteria? No. Patient's initial sepsis screen is negative. Does the patient have a suspected source of infection? Yes: Productive cough/pneumonia. Risk Assessment: Do you want to hurt yourself or someone else? Patient reports no desire to harm self or others. Onset of symptoms was March 19, 2023. 10:23 Method Of Arrival: Ambulatory 1 10:23 Acuity: LINDSEY 4 ll1 Triage Assessment: 10:24 General: Appears uncomfortable, ill, Behavior is calm, cooperative, appropriate for ll1 age. Pain: Complains of pain in back Pain currently is 10 out of 10 on a pain scale. Quality of pain is described as aching. EENT: Reports nasal congestion. Respiratory: Reports shortness of breath cough that is. Musculoskeletal: Reports pain in back. Historical: - Allergies: 10:23 No Known Allergies; ll1 - PMHx: 10:23 None; ll1 - PSHx: 10:23 None; ll1 - Immunization history:: Adult Immunizations up to date. - Social history:: Smoking status: Patient denies any tobacco usage or history of. Screenin:33 [facility] ED Fall Risk Assessment (Adult) Score/Fall Risk Level 0 - 2 = Low Risk. Abuse eh3 screen: Denies threats or abuse. Denies injuries from another. Nutritional screening: No deficits noted. Tuberculosis screening: No symptoms or risk factors identified. Assessment: 10:33 General: Appears distressed, uncomfortable, Behavior is crying. Pain: Complains of pain eh3 in back. Neuro: Level of Consciousness is awake, alert, obeys commands, Oriented to person, place, time, situation. Cardiovascular: Capillary refill < 3 seconds Patient's skin is warm and dry. Respiratory: Airway is patent Respiratory effort is even, unlabored, Respiratory pattern is regular, symmetrical. GI: Abdomen is round non-distended. Derm: Skin is pink, warm \T\ dry. Musculoskeletal: Circulation, motion, and sensation intact. Vital Signs: 10:23 BP 141 / 85; Pulse 91; Resp 17; Temp 100; Pulse Ox 99% on R/A; Pain 10/10; ll1 10:23 Pain Scale: Adult ll1 ED Course: 10:19 Patient arrived in ED. as 10:19 None, None is Private Physician. as 10:19 Zachary Cooper DO is Attending Physician. ms3 10:23 Arm band placed on. ll1 10:25 Triage completed. ll1 10:27 Ismael Jackson DO is Referral Physician. ms3 10:33 Patient has correct armband on for positive identification. Bed in low position. Call eh3 light in reach. Side rails up X2. Provided Education on: use of call dos santos. Pulse ox on. NIBP on. 10:35 Angeline Herman RN is Primary Nurse. eh3 11:12 No provider procedures requiring assistance completed. Patient did not have IV access eh3 during this emergency room visit. Administered Medications: 10:40 Drug: Acetaminophen PO 1000 mg PO once Route: PO; eh3 11:13 Follow up: Response: No adverse reaction eh3 Medication: 11:13 VIS not applicable for this client. eh3 Outcome: 10:28 Discharge ordered by MD. ms3 11:13 Patient left the ED. eh3 11:13 Discharged to home ambulatory, with friend, eh3 11:13 Condition: stable 11:13 Discharge instructions given to patient, Instructed on discharge instructions, follow up and referral plans. medication usage, Demonstrated understanding of instructions, follow-up care, medications, Prescriptions given X 2, Signatures: Hazel Worrell Lynsay, RN RN ll1 Zachary Cooper DO DO ms3 Angeline Herman, RN RN eh3
--- NOTE | 2023-03-28 10:28 | EDPHYS ---
Physician Documentation [facility] Name: Elisa Mesa Age: 37 yrs Sex: Female : 1985 Arrival Date: 03/28/2023 Time: 10:17 Bed 20 Private MD: None, None ED Physician Zachary Cooper HPI: 03/28 10:38 This 37 yrs old Black Female presents to ER via Ambulatory with complaints of Flu ms3 Symptoms - seen yesterday. 10:38 37-year-old female with no past medical history presents to the emergency department ms3 for body aches, fever. Patient was seen in the emergency department yesterday and diagnosed with flu B. Patient states she was instructed that if her symptoms became worse for her to return to the emergency department. Patient states her body is aching more now than it did yesterday. Patient states her discomfort is 10/10. Patient endorses taking Tylenol and ibuprofen. Ibuprofen was last taken this morning and Tylenol last taken last night. Patient has not filled her prescriptions as the pharmacies were not open yesterday, Thanks day.. Historical: - Allergies: 10:23 No Known Allergies; ll1 - PMHx: 10:23 None; ll1 - PSHx: 10:23 None; ll1 - Immunization history:: Adult Immunizations up to date. - Social history:: Smoking status: Patient denies any tobacco usage or history of. ROS: 10:38 Constitutional: Negative for fever, and chills. Neck: Negative for injury, pain, and ms3 swelling, Cardiovascular: Negative for chest pain, and palpitations. Respiratory: Negative for shortness of breath, cough, wheezing, and pleuritic chest pain, Abdomen/GI: Negative for abdominal pain, nausea, vomiting, diarrhea, and constipation, 10:38 Skin: Negative for injury, rash, and discoloration, 10:38 MS/extremity: Positive for bodyaches, Exam: 10:38 Constitutional: This is a well developed, well nourished patient who is awake, alert, ms3 and in no acute distress. Head/Face: Normocephalic, atraumatic. Neck: Trachea midline, no cervical lymphadenopathy. Supple, full range of motion without nuchal rigidity, or vertebral point tenderness. No Meningismus. Chest/axilla: Normal chest wall appearance and motion. Nontender with no deformity. Cardiovascular: Regular rate and rhythm with a normal S1 and S2. No gallops, murmurs, or rubs. Normal PMI, no JVD. No pulse deficits. Respiratory: Lungs have equal breath sounds bilaterally, clear to auscultation and percussion. No rales, rhonchi or wheezes noted. No increased work of breathing, no retractions or nasal flaring. Abdomen/GI: Soft, non-tender, with normal bowel sounds. No distension or tympany. No guarding or rebound. No evidence of tenderness throughout. Skin: Warm, dry with normal turgor. Normal color with no rashes, no lesions, and no evidence of cellulitis. Vital Signs: 10:23 BP 141 / 85; Pulse 91; Resp 17; Temp 100; Pulse Ox 99% on R/A; Pain 10/10; ll1 10:23 Pain Scale: Adult ll1 MDM: 10:28 Patient medically screened. ms3 10:38 Differential diagnosis: URI, Influenza B. Data reviewed: vital signs, nurses notes, and ms3 as a result, I will discharge patient. I considered the following discharge prescriptions or medication management in the emergency department Medications were administered in the Emergency Department. See MAR. Counseling: I had a detailed discussion with the patient and/or guardian regarding the historical points, exam findings, and any diagnostic results supporting the discharge/admit diagnosis, the need for outpatient follow up, to return to the emergency department if symptoms worsen or persist or if there are any questions or concerns that arise at home. Special discussion: I discussed with the patient/guardian in detail that at this point there is no indication for admission to the hospital. It is understood, however, that if the symptoms persist or worsen the patient needs to return immediately for re-evaluation. ED course: 37-year-old female presents with influenza B, fever, body aches. Discussed symptom control with [id number] ibuprofen and Tylenol. Patient given prescription for Tessalon Perles and ibuprofen. Encourage p.o. intake. Patient to follow-up with Dr. Jackson in 2 to 3 days. Patient understands and agrees with plan. All questions were answered. Return precautions discussed include worsening symptoms, or any other concerns. Administered Medications: 10:40 Drug: Acetaminophen PO 1000 mg PO once Route: PO; eh3 11:13 Follow up: Response: No adverse reaction eh3 Disposition Summary: 03/28/23 10:28 Discharge Ordered Notes: Location: Home ms3 Condition: Stable ms3 Diagnosis - Influenza B ms3 - Fever, unspecified ms3 - Myalgia ms3 Followup: ms3 - With: Ismael Jackson DO - When: 2 - 3 days - Reason: Recheck today's complaints Discharge Instructions: - Discharge Summary Sheet ll1 - Musculoskeletal Pain ms3 - Influenza, Adult, [id number] ms3 Forms: - Work release form ll1 - Medication Reconciliation Form ms3 - Thank You Letter ms3 - Antibiotic Education ms3 - Prescription Opioid Use ms3 - Patient Portal Instructions ms3 - Leadership Thank You Letter ms3 Prescriptions: - Ibuprofen 600 mg Oral Tablet - take 1 tablet ORAL route every 6 hours As needed take with food; 30 tablet; ms3 Refills: 0, Product Selection Permitted - Tessalon Perles 100 mg Oral Capsule - take 1 capsule ORAL route every 8 hours As needed; 15 capsule; Refills: 0, ms3 Product Selection Permitted Signatures: All Carias, RN RN 1 Zachary Cooper DO DO ms3 Angeline Herman RN RN 3
[2023-03-28] MEDS ORDERED: ACETAMINOPHEN 500 MG TAB ONE (10:54)
[2023-03-28 11:23] VITALS: BP 141/85; TEMP 100; O2SAT 99
== END 2023-03-28 11:13 | disposition home or self-care (01) ==
LOC: ER 10:17
DX: J10.1 Influenza due to other identified influenza virus with other respiratory manifestations (principal); M79.10 Myalgia, unspecified site; Z11.52 Encounter for screening for COVID-19
CPT/HCPCS: 99283

== ENCOUNTER 2023-09-08 07:43 | Emergency (ER) | payer SELFPAY ==
--- OUTSIDE RECORDS SUMMARY | 2023-09-08 07:47 | XMS REPORT | Continuity of Care Document ---
Author Name Unknown Address [address] [place] [address] [facility] [address] [place] [address] Care Team Providers Care Army Manager Name Role Phone NONE, NONE Primary Care Physician Denis Jon, DR CHURCHILL Attending Clinician Lobito ESPINOZA, DR JUSTIN Attending Clinician Unavailable Yann Attending Clinician Unavailable DR SHANNAN RANKIN Attending Clinician Unavailkena DOW, DR LUIS CARLOS Deras Attending Clinician Angel STEINBERG, DR BERMUDEZ Attending Clinician Unavailable JAVIER, DR GAY Attending Clinician Unavailable RADHA YOO Attending Clinician Unavailab Jon, DR CHURCHILL Admitting Clinician Lobito ESPINOZA, DR JUSTIN Admitting Clinician Unavailable Yann Admitting Clinician Unavailable DR SHANNAN RANKIN Admitting Clinician Sue DOW, DR LUIS CARLOS Deras Admitting Clinician Angel STEINBERG, DR BERMUDEZ Admitting Clinician Unavailable JAVIER, DR GAY Admitting Clinician Unavailable RADHA YOO Admitting Clinician Unavailab sanchez Payers Payer Name Policy Type Policy Number Effective Date Expirati on Date Source [id number] 2022 00:00:00 [id number] [id number] 1959 00:00:00 0450 [id number] 2018 00:00:00 Allergies, Adverse Reactions, Alerts Allergy Name Allergy Type Status Severity Reaction(s) Onset Date Inactive Date Treating Clinician Comments Source No Known Drug Allergie s DA Active Unknown 11-07 00:00: 00 [facility] Vital Signs Vital Name Observation Time Observation Value Comments Candice reed Height 2022-04-02 17:51:00 165.1 CM Weight 2022-04-02 [...] 165.1 CM Weight 2019-05-01 10:51:00 81.19 KG Encounters Start Date/Time End Date/Time Encounter Type Admission Type Attending Clinicians Care Facility Care Department Encounter ID Source 2022-04-02 17:17:00 2022-04-02 21:05:00 Outpatient ZHAO BYRD [facility] [id number] [facility] 2022-01-30 10:41:00 2022-01-31 13:00:00 Outpatient NHAN FINN [facility] [id number] [facility] 2021-06-21 00:00:00 2021-06-21 00:00:00 Outpatient Lezak_Kayla [facility] [id number] [facility] 2021-06-19 04:42:00 2021-06-19 04:42:00 Outpatient Lezak_Kayla [facility] [id number] [facility] 2021-06-15 04:28:00 2021-06-15 04:28:00 Outpatient Lezak_Kayla [facility] [id number] [facility] 2021-06-13 03:39:00 2021-06-13 03:39:00 Outpatient Yann [facility] [id number] [facility] 2021-05-30 04:21:00 2021-05-30 04:21:00 Outpatient Yann [facility] [id number] [facility] 2020-11-08 02:34:00 2020-11-08 02:34:00 Outpatient Yann [facility] [id number] [facility] 2020-10-11 11:40:00 2020-10-11 13:22:00 Outpatient SHANNAN CONTEH [facility] [id number] [facility] 2020-07-17 11:26:00 2020-07-17 13:50:00 Outpatient E SHANNAN RANKIN [facility] [id number] [facility] 2020-02-04 12:11:00 2020-02-04 12:55:00 Outpatient E LUIS CARLOS DOW [facility] [id number] [facility] 2019-07-04 09:40:00 2019-07-04 15:56:00 Outpatient E ROGER STEINBERGZENAIDA [facility] [id number] [facility] 2019-05-01 10:48:00 2019-05-01 12:04:00 Outpatient E LUIS CARLOS DOW [facility] [id number] [facility] 2019-01-20 21:09:00 2019-01-20 22:15:00 Outpatient E JAVIER VICTOR HUGO [facility] [id number] [facility] Results Test Description Test Time Test Comments Results Resul t Comments Source XR CHEST 2 VIEW *OW* 2022-04-02 18:54:45 [facility] 1985 Sex: F EXAM: CHEST 2 VIEWSINDICATION: PainCOMPARISON: None availableTECHNIQUE: PA and lateral views of the chest.FINDINGS: The cardiomediastinal silhouette is normal. The lungs are clear bilaterally. No pneumothorax or pleural effusion is identified. The osseous structures are unremarkable.IMPRESSION : No acute cardiopulmonary process.LOCATION: [id number] signed by: Yue Luong MD 04/02/2022 6:54 PM [facility] INFLUENZA A AND B OW2022-04-02 18:21:00* Test Item Value Reference Range Interpretation Comme nts INFLUENZ A (test code = INFA) NEGATIVE NEGATIVE INFLUENZ B (test code = INFB) NEGATIVE NEGATIVE SARS-CoV (RAPID ANTIGEN) WH2022-01-30 11:37:00* Test Item Value Reference Range Interpretation Comme nts SARS-CoV (ANTIGEN) (test code = COVAG) NEGATIVE NEGATIVE COVID AG (test code = COVAGC) This test has been marketed under the FDA Emergency Use Authorization (EUA) to meet challenges of the COVID-19 pandemic. The validation standards normally enforced by the FDA and the [employer] of the [employer] (CAP) are more stringent than those required for this test. Therefore, the result should be interpreted with caution and close attention to other clinical and epidemiological data TROPONIN I OW2022-01-30 11:35:00* Test Item Value Reference Range Interpretation Comme nts TROPONIN I (test code = GTPI) <0.05 ng/mL See_Comment [Automated Directra ge] The system which generated this result transmitted reference range: <=0.05. The reference range was not used to interpret this result as normal/abnormal. Mety[employer]te 8 Panel *OW* [id number] 11:29:00* Test Item Value Reference Range Interpretation Comme nts GLUCOSE (test code = GGUL) 100 mg/dL [...] = GTC02) 27 mmol/L 18-33 URINE OW2022-01-30 11:29:00* Test Item Value Reference Range Interpretation Comme nts PREG UR (test code = PGU) Negative NEGATIVE DRUGS OF ABUSE*OW*2022-01-30 11:23:00* Test Item Value Reference Range Interpretation Comme nts DRUG SCRN (test code = HDOA) URINE DRUG SCREEN This is an unconfirmed screening result and should not be used for non-medical purposes PHENCYCLID (test code = GPCP) Negative NEGATIVE BENZODIAZE (test code = GBZO) Negative NEGATIVE COCAINE (test code = GCOC) Negative NEGATIVE AMPHETAMIN (test code = GAMP) Negative NEGATIVE THC (test code = GTHC) Positive NEGATIVE A OPIATES (test code = BRITNEY) Negative NEGATIVE BARBITURAT (test code = GBAR) Negative NEGATIVE TCA (test code = GTCA) Negative NEGATIVE DOAH (test code = DOAH) URINE DRUG SCREEN CUT OFF VALUES Amphetamines 1000 ng/mL Barbituates 300 ng/mL Benzodiazepines 300 ng/mL Cocaine 300 ng/mL Opiates 300 ng/mL Phencyclidine 25 ng/mL THC 50 ng/mL Tricyclic Antidepressants 1000 ng/mL URINALYSIS W/O MICROSCOPICOW2022-01-30 11:23:00* Test Item Value Reference Range Interpretation Comme nts COLOR (test code = COLU) Yellow YELLOW CLARITY (test code = CLA) Clear CLEAR GLUCOSE UR (test code = UA GLUCOSE) Negative NEGATIVE BILI UR (test code = BILE) Negative NEGATIVE KETONES UR (test code = DEJAH) Negative NEGATIVE SP GRAVITY (test code = SPGR) 1.025 1.005-1.030 PH UR (test code = PH) 6.5 4.5-8.0 PROTEIN UR (test code = PU) Negative NEGATIVE NITRITE UR (test code = NITRITE) Negative NEGATIVE UROBIL UR (test code = GUROQ) 0.2 E.U./dL UROBIL UR (test code = GUROQC) UROBILINOGEN REFERENCE RANGE 0.2 - 1.0 EU/dL BLOOD UR (test code = UA BLOOD) 3+ NEGATIVE A LEUK ES UR (test code = LEUK) Negative NEGATIVE CBC (INCLUDES AUTOMATED DIFFERENTIAL) *2022-01-30 11:22:00* Test Item Value Reference Range Interpretation Comme nts WBC (test code = WBC) 5.9 10\S\3/uL [...] GMID%) 10.0 % 0.0-10.0 D-DIMER TRIAGE OW2020-10-11 13:08:00* Test Item Value Reference Range Interpretation Comme nts D-DIMER (test code = GDDI) 179 ng/mL D-DU See_Comment [Automated messa ge] The system which generated this result transmitted reference range: <=599. The reference range was not used to interpret this result as normal/abnormal. D-DIMER COMMENT (test code = DDCOM) *Level to rule out DVT or PE: <235 ng/mL D-DU* TROPONIN I OW2020-10-11 13:00:00* Test Item Value Reference Range Interpretation Comme nts TROPONIN I (test code = A84) <0.050 ng/mL 0.000-0.050 Mety[employer]te 8 Panel *OW* [id number] 12:52:00* Test Item Value Reference Range Interpretation Comme nts GLUCOSE (test code = GGUL) 93 mg/dL [...] 28 mmol/L 18-33 GENERAL CHEMISTRY 13 *OW* [id number] 12:52:00* Test Item Value Reference Range Interpretation Comme nts GLUCOSE (test code = GGUL) 93 mg/dL [...] U/L 14-97 CBC (INCLUDES AUTOMATED DIFFERENTIAL) *2020-10-11 12:42:00* Test Item Value Reference Range Interpretation Comme nts WBC (test code = WBC) 7.2 10\S\3/uL [...] % 0.0-10.0 H PROTHROMBIN TIME i-STAT OW2020-10-11 12:40:00* Test Item Value Reference Range Interpretation Comme nts PT (test code = PT1) 12.2 s 10.0-13.0 INR (test code = INR) 1.0 INRH (test code = INRH) SUGGESTED THERAPEUTIC RANGE FOR INR: 2.5 - 3.5 For Patients with Prosthetic Valves or Patients with recurrent Thromboembolic Events 2.0 - 3.0 For Most Other Applications URINE OW2020-07-17 12:57:00* Test Item Value Reference Range Interpretation Comme nts PREG UR (test code = PGU) Negative NEGATIVE DRUGS OF ABUSE*OW*2020-07-17 12:56:00* Test Item Value Reference Range Interpretation Comme nts DRUG SCRN (test code = HDOA) URINE DRUG SCREEN This is an unconfirmed screening result and should not be used for non-medical purposes PHENCYCLID (test code = GPCP) Negative NEGATIVE BENZODIAZE (test code = GBZO) Negative NEGATIVE COCAINE (test code = GCOC) Negative NEGATIVE AMPHETAMIN (test code = GAMP) Negative NEGATIVE THC (test code = GTHC) Positive NEGATIVE A OPIATES (test code = BRITNEY) Negative NEGATIVE BARBITURAT (test code = GBAR) Negative NEGATIVE TCA (test code = GTCA) Negative NEGATIVE DOAH (test code = DOAH) URINE DRUG SCREEN CUT OFF VALUES Amphetamines 1000 ng/mL Barbituates 300 ng/mL Benzodiazepines 300 ng/mL Cocaine 300 ng/mL Opiates 300 ng/mL Phencyclidine 25 ng/mL THC 50 ng/mL Tricyclic Antidepressants 1000 ng/mL URINALYSIS W/O MICROSCOPICOW2020-07-17 12:52:00* Test Item Value Reference Range Interpretation Comme nts COLOR (test code = COLU) [place] YELLOW A Previously reported as: Yellow On 07/17/2020 12:52 By BRAL CLARITY (test code = CLA) Clear CLEAR GLUCOSE UR (test code = UA GLUCOSE) Negative NEGATIVE BILI UR (test code = BILE) Negative NEGATIVE KETONES UR (test code = DEJAH) Negative NEGATIVE SP GRAVITY (test code = SPGR) 1.025 1.005-1.030 PH UR (test code = PH) 7.0 4.5-8.0 PROTEIN UR (test code = PU) 1+ NEGATIVE A NITRITE UR (test code = NITRITE) Negative NEGATIVE UROBIL UR (test code = GUROQ) 0.2 E.U./dL UROBIL UR (test code = GUROQC) UROBILINOGEN REFERENCE RANGE 0.2 - 1.0 EU/dL BLOOD UR (test code = UA BLOOD) 3+ NEGATIVE A LEUK ES UR (test code = LEUK) Trace NEGATIVE SARS-CoV (RAPID ANTIGEN) WH2020-07-17 12:33:00* Test Item Value Reference Range Interpretation Comme nts SARS-CoV (ANTIGEN) (test code = COVAG) NEGATIVE NEGATIVE COVID AG (test code = COVAGC) This test has been marketed under the FDA Emergency Use Authorization (EUA) to meet challenges of the COVID-19 pandemic. The validation standards normally enforced by the FDA and the [employer] of the [place] (CAP) are more stringent than those required for this test. Therefore, the result should be interpreted with caution and close attention to other clinical and epidemiological data BRAIN NATRIURETIC PEPTIDE OW2020-07-17 12:13:00* Test Item Value Reference Range Interpretation Comme nts BNP (test code = OBNP) 25 pg/mL See_Comment [Automated Directra ge] The system which generated this result transmitted reference range: <=100. The reference range was not used to interpret this result as normal/abnormal. D-DIMER TRIAGE OW2020-07-17 12:10:00* Test Item Value Reference Range Interpretation Comme nts D-DIMER (test code = GDDI) 170 ng/mL D-DU See_Comment [Automated messa ge] The system which generated this result transmitted reference range: <=599. The reference range was not used to interpret this result as normal/abnormal. D-DIMER COMMENT (test code = DDCOM) *Level to rule out DVT or PE: <235 ng/mL D-DU* TROPONIN I OW2020-07-17 12:10:00* Test Item Value Reference Range Interpretation Comme nts TROPONIN I (test code = A84) <0.050 ng/mL 0.000-0.050 [employer]ety[employer]te 8 Panel *OW* [id number] 12:09:00* Test Item Value Reference Range Interpretation Comme nts GLUCOSE (test code = GGUL) 99 mg/dL [...] 28 mmol/L 18-33 GENERAL CHEMISTRY 13 *OW* [id number] 12:09:00* Test Item Value Reference Range Interpretation Comme nts GLUCOSE (test code = GGUL) 99 mg/dL [...] U/L 14-97 CBC (INCLUDES AUTOMATED DIFFERENTIAL) *2020-07-17 11:56:00* Test Item Value Reference Range Interpretation Comme nts WBC (test code = WBC) 5.1 10\S\3/uL [...] 10.3 % 0.0-10.0 H ALCOHOL BLOOD (ETOH)2019-07-04 12:06:00* Test Item Value Reference Range Interpretation Comme nts ETOH (test code = HALC) ETHANOL * The result is to be used only for medical purposes ALCOHOL (test code = 56A) <10 mg/dL <=10 [id number] 12:02:00* Test Item Value Reference Range Interpretation Comme nts ACETAMINPH (test code = 94M) <2.0 ug/mL 10.0-30.0 L [id number] 11:57:00* Test Item Value Reference Range Interpretation Comme nts SALICYLATE (test code = 94B) 6.7 mg/dL 2.8-20.0 GENERAL CHEMISTRY 13 *OW* [id number] 10:30:00* Test Item Value Reference Range Interpretation Comme nts GLUCOSE (test code = GGUL) 93 mg/dL [...] GAMY) 38 U/L 14-97 DRUGS OF ABUSE*OW*2019-07-04 10:23:00* Test Item Value Reference Range Interpretation Comme nts DRUG SCRN (test code = HDOA) URINE DRUG SCREEN This is an unconfirmed screening result and should not be used for non-medical purposes PHENCYCLID (test code = GPCP) Negative NEGATIVE BENZODIAZE (test code = GBZO) Negative NEGATIVE COCAINE (test code = GCOC) Negative NEGATIVE AMPHETAMIN (test code = GAMP) Negative NEGATIVE THC (test code = GTHC) Positive NEGATIVE A OPIATES (test code = BRITNEY) Negative NEGATIVE BARBITURAT (test code = GBAR) Negative NEGATIVE TCA (test code = GTCA) Negative NEGATIVE DOAH (test code = DOAH) URINE DRUG SCREEN CUT OFF VALUES Amphetamines 1000 ng/mL Barbituates 300 ng/mL Benzodiazepines 300 ng/mL Cocaine 300 ng/mL Opiates 300 ng/mL Phencyclidine 25 ng/mL THC 50 ng/mL Tricyclic Antidepressants 1000 ng/mL MetyLyte 8 Panel *OW* [id number] 10:14:00* Test Item Value Reference Range Interpretation Comme nts GLUCOSE (test code = GGUL) 91 mg/dL [...] GTC02) 26 mmol/L 18-33 URINALYSIS W/O MICROSCOPICOW2019-07-04 10:14:00* Test Item Value Reference Range Interpretation Comme nts COLOR (test code = COLU) Yellow YELLOW CLARITY (test code = CLA) Clear CLEAR GLUCOSE UR (test code = UA GLUCOSE) Negative NEGATIVE BILI UR (test code = BILE) Negative NEGATIVE KETONES UR (test code = DEJAH) Negative NEGATIVE SP GRAVITY (test code = SPGR) 1.020 1.005-1.030 PH UR (test code = PH) 6.0 4.5-8.0 PROTEIN UR (test code = PU) Negative NEGATIVE NITRITE UR (test code = NITRITE) Negative NEGATIVE UROBIL UR (test code = GUROQ) 0.2 E.U./dL UROBIL UR (test code = GUROQC) UROBILINOGEN REFERENCE RANGE 0.2 - 1.0 EU/dL BLOOD UR (test code = UA BLOOD) 2+ NEGATIVE A LEUK ES UR (test code = LEUK) 1+ NEGATIVE A URINE OW2019-07-04 10:11:00* Test Item Value Reference Range Interpretation Comme nts PREG UR (test code = PGU) Negative NEGATIVE CBC (INCLUDES AUTOMATED DIFFERENTIAL) *2019-07-04 10:04:00* Test Item Value Reference Range Interpretation Comme nts WBC (test code = WBC) 6.1 10\S\3/uL [...] % 0.0-10.0 INFLUENZA A AND B OW2019-05-01 11:08:00* Test Item Value Reference Range Interpretation Comme nts INFLUENZ A (test code = INFA) NEGATIVE NEGATIVE INFLUENZ B (test code = INFB) NEGATIVE NEGATIVE DIRECT STREP GROUP AOW2019-05-01 11:08:00* Test Item Value Reference Range Interpretation Comme nts STREP A AG (test code = STREP) NEGATIVE NEGATIVE XR KNEE LEFT 3 VIEWS *OW*2019-01-20 21:48:23LOCATION: [id number]: 33-year-old female who suffered a fall, injuring her left knee.COMMENT: Frontal, oblique, and crosstable lateral radiographs of the left knee wereobtained.The skeleton is intact, and normally mineralized. The joint spaces are wellmaintained. The soft tissues are unremarkable. IMPRESSION:Unremarkable radiographic examination of the left knee.XR CHEST 2 VIEW *WW*2017-02-01 07:29:51Location code: [id number]: chest painTECHNIQUE: Frontal and lateral views of the chest were obtained. Comparison to March 2012FINDINGS: The cardiomediastinal silhouette is unremarkable. The trachea ismidline. The lungs are clear. There is no effusion or pneumothorax. The bonesare intact.IMPRESSION: No acute pulmonary process.
[2023-09-08] MEDS ORDERED: DIPHENHYDRAMINE 50 MG/ML VIAL ONE (08:08)
[2023-09-08] MEDS ORDERED: KETOROLAC 30 MG/ML INJ ONE (08:08)
[2023-09-08] MEDS ORDERED: NA CHLORIDE 0.9% 1,000 ML ONE (08:09)
[2023-09-08 08:38] LABS: Absolute Eosinophils 0.3 K/uL (0-0.5); Absolute Lymphocytes (CBC) 2.4 K/uL (0.7-4.9); Absolute Monocytes 0.3 K/uL (0.1-1.3); Absolute Neutrophil 2.1 K/uL (1.8-8.0); Basophils % 0.5 % (0-1.3); Eosinophils % 5.6 % (0-4.4); Hematocrit 33.7 % (36.0-45.0); Hemoglobin 10.8 g/dL (12.0-15.0); Lymphocytes % 46.1 % (15.3-44.8); MCH 26.6 pg (27.0-35.0); MCV 82.9 fL (80-100); MPV 7.4 fL (7.6-11.3); Monocytes % 6.6 % (3.3-12.3); Neutrophils % 41.2 % (41.7-73.7); Platelets 354 thou/uL (152-406); RBC Red Blood Cell Count 4.07 M/uL (3.86-4.86); Red Cell Distribution Width 15.5 % (12.1-15.2)
[2023-09-08 08:57] LABS: ALT/SGPT 11 U/L (13-56); Albumin 3.4 g/dL (3.4-5.0); Alkaline Phosphatase 50 U/L (45-117); Anion Gap 6.6 mEq/L (5.0-15.0); BUN Blood Urea Nitrogen 8 mg/dL (7-18); Bicarbonate 28 mEq/L (21-32); Bilirubin Total 0.3 mg/dL (0.2-1.0); Globulin 3.5 g/dL (2.3-3.5); Glomerular Filtration Rate 76 ml/min (=/>90); Glucose Level 96 mg/dL (74-106); Potassium 3.6 mEq/L (3.5-5.1); Protein, Total 6.9 g/dL (6.4-8.2); Sodium Level 141 mEq/L (136-145); Troponin High Sensitivity 4.5 pg/mL (<58.9)
[2023-09-08 08:58] LABS: AST/SGOT < 4 U/L (15-37)
[2023-09-08 09:02] LABS: Specific Gravity > 1.030 (1.005-1.030)
[2023-09-08 09:22] LABS: Specific Gravity > 1.030 (1.005-1.030); Sqamous Epithelial 20-50 /HPF (None Seen); Transitional Epithelial <5 /HPF (None Seen); Urine Bacteria 20-50 /HPF (<20); Urine Bilirubin NEGATIVE (Negative); Urine Blood 3+ (OVER) (Negative); Urine Clarity Extremely Turbid (Clear); Urine Color Yellow (Yellow); Urine Culture Reflex Order NOT NEEDED; Urine Glucose NEGATIVE (Negative); Urine Ketones NEGATIVE (Negative); Urine Micro Reflex YN NO BILL MICROSCOPIC; Urine Mucus 3+ /HPF (None Seen); Urine Nitrite NEGATIVE (Negative); Urine Protein 1+ (Negative); Urine RBC 21-50 /HPF (None Seen); Urine Urobilinogen Normal (Normal)
--- NOTE | 2023-09-08 09:24 | RAD REPORT ---
EXAM DESCRIPTION: Donovan Single View09/08/2023 9:16 am CLINICAL HISTORY: Chest pain COMPARISON: 2022 FINDINGS: The lungs appear clear of acute infiltrate. The heart is normal size IMPRESSION: No acute abnormalities displayed
--- NOTE | 2023-09-08 09:36 | EDPHYS ---
Physician Documentation [facility] Name: Elisa Mesa Age: 38 yrs Sex: Female : 1985 Arrival Date: 09/08/2023 Time: 07:43 Bed 4 Private MD: ED Physician Nacho Chavira HPI: 09/07 08:03 This 38 yrs old Black Female presents to ER via Ambulatory with complaints of Chest ec2 Pain, Headache. 08:03 Patient arrives today for evaluation of chest pain and headache. Patient complains of 4 ec2 days of headache, states that the pain is been constant, no specific alleviating or exacerbating factors. Patient reports no recent head injuries or trauma. Patient reports also chest pain has been ongoing for 3 days, intermittent, no specific alleviating or exacerbating factors. 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 - Infectious Disease History:: Denies. - Social history:: Smoking status: Patient denies any tobacco usage or history of. ROS: 08:05 Constitutional: as per hpi ec2 Exam: 08:05 Constitutional: GEN: NAD Head: atraumatic Eyes: EOMI Ears: External ears are ec2 normal. CV: regular rate LUNGS: no respiratory distress ABD: non-distended SKIN: no evidence of rashes MSK: no evidence of trauma NEURO: moves all extremities equally Vital Signs: 07:52 BP 143 / 89; Pulse 63; Resp 16; Temp 98; Pulse Ox 99% ; Weight 93.89 kg; Height 5 ft. 5 db in. ; Pain 10/10; 08:30 BP 113 / 82; Pulse 48; Resp 15; Pulse Ox 100% on R/A; db 09:30 BP 104 / 59; Pulse 46; Resp 15 S; Pulse Ox 100% ; db 07:52 Body Mass Index 34.45 (93.89 kg, 165.1 cm) db 07:52 Pain Scale: Adult db MDM: 07:58 Patient medically screened. ec2 08:05 Data reviewed: vital signs. ED course: Patient arrives today for evaluation of headache ec2 and chest pain. Examination remarkable for well-appearing nontoxic dividual with reassuring vital signs. EKG obtained, independently reviewed and interpreted by me, shows normal sinus rhythm, rate of 58, no acute ST segment ovation's, normal nonconcerning. Will obtain lab work, chest x-ray. Will treat the patient symptoms as well. Considered electrolyte disturbances, additionally considered arrhythmia, ACS. Doubt intracranial brain bleed, doubt intracranial mass. Additionally doubt dissection.. 08:44 ED course: CBC with slight anemia noted.. ec2 09:11 ED course: Metabolic profile is reassuring. Urine testing negative. Troponin ec2 is within normal ranges. . 09/07 07:59 Order name: CBC with Diff; Complete Time: 08:44 ec2 09/07 07:59 Order name: Troponin HS; Complete Time: 09:11 ec2 09/07 07:59 Order name: CMP; Complete Time: 09:11 ec2 09/07 08:03 Order name: UAM; Complete Time: 09:34 ec2 09/07 08:03 Order name: Test, Urine; Complete Time: 09:11 ec2 / 07:59 Order name: XRAY Chest (1 view); Complete Time: 09:34 ec2 09/07 07:59 Order name: Cardiac monitoring; Complete Time: 08:06 ec2 09/07 07:59 Order name: EKG - Nurse/Tech; Complete Time: 08:06 ec2 09/07 07:59 Order name: IV Saline Lock; Complete Time: 08:06 ec2 09/07 07:59 Order name: Labs collected and sent; Complete Time: 08:06 ec2 09/07 07:59 Order name: O2 Per Protocol; Complete Time: 08:06 ec2 09/07 07:59 Order name: O2 Sat Monitoring; Complete Time: 08:06 ec2 Administered Medications: 08:12 Drug: NS 0.9% IV 1000 ml IV at 1 bolus Per protocol; 1000 mL bolus Route: IV; Rate: 1 db bolus; Site: left antecubital; 09:48 Follow up: Response: No adverse reaction; IV Status: Completed infusion; IV Intake: db 1000ml 08:13 Drug: Droperidol IVP 1.25 mg IVP once Route: IVP; Site: left antecubital; db 09:48 Follow up: Response: No adverse reaction db 08:15 Drug: diphenhydrAMINE IVP 12.5 mg IVP once Route: IVP; Site: left antecubital; db 09:48 Follow up: Response: No adverse reaction db 08:19 Drug: Ketorolac IVP 15 mg IVP once Route: IVP; Site: left antecubital; db 09:48 Follow up: Response: No adverse reaction db Disposition Summary: 09/08/23 09:36 Discharge Ordered Notes: Location: Home ec2 Condition: Stable ec2 Diagnosis - Headache ec2 - Chest pain, unspecified ec2 Followup: ec2 - With: Private Physician - When: - Reason: Re-evaluation by your physician Discharge Instructions: - Discharge Summary Sheet ec2 - Nonspecific Chest Pain, Adult ec2 - Nonspecific Chest Pain, Adult, [id number] ec2 Forms: - Work release form la1 - Medication Reconciliation Form ec2 - Antibiotic Education ec2 - Prescription Opioid Use ec2 - Patient Portal Instructions ec2 - Leadership Thank You Letter ec2 Prescriptions: - Compazine 10 mg Oral Tablet - take 1 tablet ORAL route every 8 hours As needed; 20 tablet; Refills: 0, ec2 Product Selection Permitted Signatures: Dispatcher [employer] Aurora Cm RN RN db Corral, Edwin, MD MD ec2
--- NOTE | 2023-09-08 09:36 | ER ---
Nurse's Notes [facility] Name: Elisa Mesa Age: 38 yrs Sex: Female : 1985 Arrival Date: 09/08/2023 Time: 07:43 Bed 4 Private MD: Diagnosis: Headache;Chest pain, unspecified Presentation: 09/07 07:52 Chief complaint: Chief complaint: Patient states: HEADACHE X 4 DAYS. CHEST PAIN WITH db PALPITATIONS STARTED YESTERDAY AND STARTED VOMITING TODAY. 07:52 Coronavirus screen: Vaccine status: Patient reports receiving the 2nd dose of the covid db vaccine. Client denies travel out of the [place] in the last 14 days. At this time, the client does not indicate any symptoms associated with coronavirus-19. Ebola Screen: Patient negative for fever greater than or equal to 101.5 degrees Fahrenheit, and additional compatible Ebola Virus Disease symptoms Patient denies exposure to infectious person. Patient denies travel to an Ebola-affected area in the 21 days before illness onset. No symptoms or risks identified at this time. Initial Sepsis Screen: Does the patient meet any 2 criteria? No. Patient's initial sepsis screen is negative. Does the patient have a suspected source of infection? No. Patient's initial sepsis screen is negative. Risk Assessment: Do you want to hurt yourself or someone else? Patient reports no desire to harm self or others. Onset of symptoms was September 08, 2023. 07:52 Method Of Arrival: Ambulatory db 07:52 Acuity: LINDSEY 2 db Triage Assessment: 07:54 General: Appears in no apparent distress. comfortable, Behavior is calm, cooperative. db Pain: Complains of pain in head and chest. Neuro: Level of Consciousness is awake, alert, obeys commands, Oriented to person, place, time, situation. Cardiovascular: Reports chest pain, palpitations. Respiratory: Airway is patent Respiratory effort is even, unlabored, Respiratory pattern is regular, symmetrical. GI: Reports nausea, vomiting. 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 - Infectious Disease History:: Denies. - Social history:: Smoking status: Patient denies any tobacco usage or history of. Screenin:59 [facility] ED Fall Risk Assessment (Adult) History of falling in the last 3 months, db including since admission No falls in past 3 months (0 pts) Confusion or Disorientation No (0 pts) Intoxicated or Sedated No (0 pts) Impaired Gait No (0 pts) Mobility Assist Device Used No (0 pt) Altered Elimination No (0 pt) Score/Fall Risk Level 0 - 2 = Low Risk Oriented to surroundings, Maintained a safe environment. Abuse screen: Denies threats or abuse. Denies injuries from another. Nutritional screening: No deficits noted. Tuberculosis screening: No symptoms or risk factors identified. Assessment: 07:59 Reassessment: SEE TRIAGE FOR INITIAL ASSESSMENT. db 08:30 Reassessment: Patient appears in no apparent distress at this time. Patient and/or db family updated on plan of care and expected duration. Pain level reassessed. Patient is alert, oriented x 3, equal unlabored respirations, skin warm/dry/pink. General: Appears in no apparent distress. comfortable, Behavior is calm, cooperative. Pain: Complains of pain in head Pain does not radiate. Pain began gradually. Neuro: Level of Consciousness is awake, alert, obeys commands, Oriented to person, place, time, situation. Cardiovascular: Reports chest pain, Capillary refill < 3 seconds Patient's skin is warm and dry. Respiratory: Airway is patent Respiratory effort is even, unlabored, Respiratory pattern is regular, symmetrical. 09:35 Reassessment: Patient appears in no apparent distress at this time. Patient and/or db family updated on plan of care and expected duration. Pain level reassessed. Patient is alert, oriented x 3, equal unlabored respirations, skin warm/dry/pink. Patient states feeling better. Patient states symptoms have improved. Vital Signs: 07:52 BP 143 / 89; Pulse 63; Resp 16; Temp 98; Pulse Ox 99% ; Weight 93.89 kg; Height 5 ft. 5 db in. ; Pain 10/10; 08:30 BP 113 / 82; Pulse 48; Resp 15; Pulse Ox 100% on R/A; db 09:30 BP 104 / 59; Pulse 46; Resp 15 S; Pulse Ox 100% ; db 07:52 Body Mass Index 34.45 (93.89 kg, 165.1 cm) db 07:52 Pain Scale: Adult db ED Course: 07:45 Patient arrived in ED. im 07:52 Aurora Lawrence, LAYNE is Primary Nurse. db 07:54 Triage completed. db 07:54 Arm band placed on Patient placed in an exam room. db 07:56 Nacho Chavira MD is Attending Physician. ec2 07:57 Door closed. Noise minimized. Lights dimmed. Warm blanket given. [id number] 07:57 EKG done, by ED staff. [email or web address] 07:58 Inserted saline lock: 20 gauge in left antecubital area, using aseptic technique. Blood db collected. 09:18 XRAY Chest (1 view) In Process Unspecified. EDMS 09:48 Patient has correct armband on for positive identification. Bed in low position. Call db light in reach. Side rails up X 1. Provided Education on: DISCHARGE AND HOME CARE. Client placed on continuous cardiac and pulse oximetry monitoring. NIBP monitoring applied. personnel monitor on. Pulse ox on. NIBP on. 09:48 No provider procedures requiring assistance completed. IV discontinued, intact, db bleeding controlled, No redness/swelling at site. O2 via ROOMAIR. Administered Medications: 08:12 Drug: NS 0.9% IV 1000 ml IV at 1 bolus Per protocol; 1000 mL bolus Route: IV; Rate: 1 db bolus; Site: left antecubital; 09:48 Follow up: Response: No adverse reaction; IV Status: Completed infusion; IV Intake: db 1000ml 08:13 Drug: Droperidol IVP 1.25 mg IVP once Route: IVP; Site: left antecubital; db 09:48 Follow up: Response: No adverse reaction db 08:15 Drug: diphenhydrAMINE IVP 12.5 mg IVP once Route: IVP; Site: left antecubital; db 09:48 Follow up: Response: No adverse reaction db 08:19 Drug: Ketorolac IVP 15 mg IVP once Route: IVP; Site: left antecubital; db 09:48 Follow up: Response: No adverse reaction db Medication: 07:59 VIS not applicable for this client. db Intake: 09:48 IV: 1000ml; Total: 1000ml. db Outcome: 09:36 Discharge ordered by . ec2 09:48 Discharged to home ambulatory, db 09:48 Condition: stable 09:48 Discharge instructions given to patient, Instructed on discharge instructions, follow up and referral plans. Prescriptions given X 1, 09:51 Patient left the ED. db Signatures: Dispatcher [employer] Aurora Cm, RN RN db Sydni Goddard Edwin, MD MD ec2 Jamey Kessler [email or web address] Corrections: (The following items were deleted from the chart) 07:54 07:52 Chief complaint: db db
[2023-09-08 10:19] VITALS: BP 104/59; TEMP 98; O2SAT 100
--- NOTE | 2023-09-09 14:02 | EKG ---
Test Date: 2023-09-08 Test Time: 07:53:34 Geophysical Manager: KRIS MEASUREMENT RESULTS: Intervals: Rate: 61 PA: 160 QRSD: 80 QT: 376 QTc: 378 [place]: P: 80 PA: 160 QRS: 71 T: 13 INTERPRETIVE STATEMENTS: Normal sinus rhythm Nonspecific ST and T wave abnormality Abnormal ECG No previous ECG available for comparison Electronically Signed On 09-09-23 13:58:57 CDT by Jake Cordova
--- NOTE | 2023-09-10 13:10 | EKG ---
Test Date: 2023-09-08 Test Time: 07:54:01 Roll Finisher: KRIS MEASUREMENT RESULTS: Intervals: Rate: 58 AR: 170 QRSD: 84 QT: 418 QTc: 410 [place]: P: 72 AR: 170 QRS: 81 T: 35 INTERPRETIVE STATEMENTS: Sinus bradycardia Otherwise normal ECG Compared to ECG 09/08/2023 07:53:34 Sinus rhythm no longer present ST (T wave) deviation no longer present Electronically Signed On 09-10-23 13:07:56 CDT by Jake Cordova
== END 2023-09-08 09:51 | disposition home or self-care (01) ==
LOC: ER 07:43
DX: R07.9 Chest pain, unspecified (principal); R51.9 Headache, unspecified
CPT/HCPCS: 36415; 71045; 80053; 81001; 81025; 84484; 85025; 93005; 96361; 96374; 96375; 99285; J1200; J7030

== ENCOUNTER 2024-07-23 08:25 | Emergency (ER) | payer SELFPAY ==
--- OUTSIDE RECORDS SUMMARY | 2024-07-23 08:29 | XMS REPORT | Continuity of Care Document ---
Author Name Unknown Address [address] [place] [address] [facility] Address [address] [place] [address] Care Team Providers Care Political Scientist Name Role Phone NONE, NONE Primary Care Physician Unavailab Jon, DR CHURCHILL Attending Clinician Lobito ESPINOZA, DR JUSTIN Attending Clinician Unavailable Yann Attending Clinician Unavailable CHUCHO, DR SHANNAN Blood Attending Clinician Unavailkena DOW, DR LUIS CARLOS Deras Attending Clinician Angel STEINBERG, DR BERMUDEZ Attending Clinician Unavailable JAVIER, DR GAY Attending Clinician Unavailable RADHA YOO Attending Clinician Unavailab Jon, DR CHURCHILL Admitting Clinician Lobito ESPINOZA, DR JUSTIN Admitting Clinician Unavailable Yann Admitting Clinician Unavailable CHUCHO, DR SHANNAN Blood Admitting Clinician Unavailkena DOW, DR LUIS CARLOS Deras Admitting Clinician Angel STEINBERG, DR BERMUDEZ Admitting Clinician Unavailable JAVIER, DR GAY Admitting Clinician Unavailable RADHA YOO Admitting Clinician Unavailab sanchez Paymarilee Payer Name Policy Type Policy Number Effective Date Expirati on Date Source [id number] 2022-04-02 00:00:00 0777 [id number] 1957-05-05 00:00:00 0450 [id number] 2018-05-05 00:00:00 Allergies, Adverse Reactions, Alerts Allergy Name Allergy Type Status Severity Reaction(s) Onset Date Inactive Date Treating Clinician Comments Source No Known Drug Allergie s DA Active Unknown 11-07 00:00: 00 [facility] Vital Signs Vital Name Observation Time Observation Value Comments S brianna Weight 2022-04-02 17:51:00 93.89 KG Height 2022-04-02 17:51:00 165.1 CM Height 2022-01-30 10:45:00 165.1 CM Weight 2022-01-30 [...] Care Facility Care Department Encounter ID Source 2024-04-26 13:40:28 2024-04-26 13:40:28 Outpatient [facility] [id number] Vignesh Berenice Charles 2024-04-23 09:20:34 2024-04-23 09:20:34 Outpatient [facility] [id number] Vignesh Charles 2022-04-02 17:17:00 2022-04-02 21:05:00 Outpatient E ZHAO LAGUNA [facility] [id number] [facility] 2022-01-30 10:41:00 2022-01-31 13:00:00 Outpatient NHAN FINN [facility] [id number] [facility] 2021-06-21 00:00:00 2021-06-21 00:00:00 Outpatient Yann LOO [facility] [id number] Rudiagocris da [facility] 2021-06-19 04:42:00 2021-06-19 04:42:00 Outpatient LezakRupalKayla [facility] [id number] [facility] 2021-06-15 04:28:00 2021-06-15 04:28:00 Outpatient Lezak_Kayla [facility] [id number] [facility] 2021-06-13 03:39:00 2021-06-13 03:39:00 Outpatient Lezak_Kayla [facility] [id number] [facility] 2021-05-30 04:21:00 2021-05-30 04:21:00 Outpatient Lezak_Kayla [facility] [id number] [facility] 2020-11-08 02:34:00 2020-11-08 02:34:00 Outpatient LezakQuanyla [facility] [id number] [facility] 2020-10-11 11:40:00 2020-10-11 13:22:00 Outpatient SHANNAN CONTEH [facility] [id number] [facility] 2020-07-17 11:26:00 2020-07-17 13:50:00 Outpatient SHANNAN CONTEH [facility] [id number] [facility] 2020-02-04 12:11:00 2020-02-04 12:55:00 Outpatient E LUIS CARLOS DOW [facility] [id number] [facility] 2019-07-04 09:40:00 2019-07-04 15:56:00 Outpatient AIDAN OSULLIVAN [facility] [id number] [facility] 2019-05-01 10:48:00 2019-05-01 12:04:00 Outpatient E LUIS CARLOS DOW [facility] [id number] [facility] 2019-01-20 21:09:00 2019-01-20 22:15:00 Outpatient E VICTOR HUGO HERRERA [facility] [id number] [facility] 2018-10-02 12:06:00 2018-10-02 12:06:00 Emergency E [facility] [id number] [facility] Results Test Description Test Time Test Comments Results Resul t Comments Source XR CHEST 2 VIEW *OW* 2022-04-02 18:54:45 [facility] 1985 Sex: F EXAM: CHEST 2 VIEWSINDICATION: PainCOMPARISON: None availableTECHNIQUE: PA and lateral views of the chest.FINDINGS: The cardiomediastinal silhouette is normal. The lungs are clear bilaterally. No pneumothorax or pleural effusion is identified. The osseous structures are unremarkable.IMPRESSION : No acute cardiopulmonary process.LOCATION: [id number] signed by: uYe Luong MD 04/02/2022 6:54 PM TACK PICKER INFLUENZA A AND B OW2022-04-02 18:21:00* Test [...] the FDA and the [employer] (CAP) are more stringent than those required for this test. Therefore, the result should be interpreted with caution and close attention to other clinical and epidemiological data TROPONIN I OW2022-01-30 11:35:00* Test Item Value Reference Range Interpretation Comme nts TROPONIN I (test code = GTPI) <0.05 ng/mL See_Comment [Automated messa ge] The system which generated this result transmitted reference range: <=0.05. The reference range was not used to interpret this result as normal/abnormal. MetyLyte 8 Panel *OW* [id number] 11:29:00* Test Item Value Reference Range Interpretation [...] = GDDI) 179 ng/mL D-DU See_Comment [Automated CardioLogsa ge] The system which generated this result [...] <0.050 ng/mL 0.000-0.050 MetyLyte 8 Panel *OW* [id number] 12:52:00* Test Item Value Reference Range Interpretation [...] 28 mmol/L 18-33 GENERAL CHEMISTRY 13 *OW* [id number] 12:52:00* Test Item Value Reference Range Interpretation [...] Comme nts COLOR (test code = COLU) Ursina YELLOW A Previously reported as: Yellow On [...] the FDA and the [employer] (CAP) are more stringent than those required for this test. Therefore, the result should be interpreted with caution and close attention to other clinical and epidemiological data BRAIN NATRIURETIC PEPTIDE OW2020-07-17 12:13:00* Test Item Value Reference Range Interpretation Comme nts BNP (test code = OBNP) 25 pg/mL See_Comment [Automated CardioLogsa Designer Material] The system which generated this result transmitted reference range: <=100. The reference range was not used to interpret this result as normal/abnormal. D-DIMER TRIAGE OW2020-07-17 12:10:00* Test Item Value Reference Range Interpretation Comme nts D-DIMER (test code = GDDI) 170 ng/mL D-DU See_Comment [Automated CardioLogsa Designer Material] The system which generated this result transmitted reference range: <=599. The reference range was not used to interpret this result as normal/abnormal. D-DIMER COMMENT (test code = DDCOM) *Level to rule out DVT or PE: <235 ng/mL D-DU* TROPONIN I OW2020-07-17 12:10:00* Test Item Value Reference Range Interpretation Comme nts TROPONIN I (test code = A84) <0.050 ng/mL 0.000-0.050 MetyLyte 8 Panel *OW* [id number] 12:09:00* Test Item Value Reference Range Interpretation [...] 28 mmol/L 18-33 GENERAL CHEMISTRY 13 *OW* [id number] 12:09:00* Test Item Value Reference Range Interpretation [...] (test code = 56A) <10 mg/dL <=10 [id number] 12:02:00* Test Item Value Reference Range Interpretation Comme nts ACETAMINPH (test code = 94M) <2.0 ug/mL 10.0-30.0 L [id number] 11:57:00* Test Item Value Reference Range Interpretation Comme nts SALICYLATE (test code = 94B) 6.7 mg/dL 2.8-20.0 GENERAL CHEMISTRY 13 *OW* [id number] 10:30:00* Test Item Value Reference Range Interpretation [...] Antidepressants 1000 ng/mL MetyLyte 8 Panel *OW* [id number] 10:14:00* Test Item Value Reference Range Interpretation [...] XR KNEE LEFT 3 VIEWS *OW*2019-01-20 21:48:23LOCATION: [id number]: 33-year-old female who suffered a fall, injuring her left knee.COMMENT: Frontal, oblique, and crosstable lateral radiographs of the left knee wereobtained.The skeleton is intact, and normally mineralized. The joint spaces are wellmaintained. The soft tissues are unremarkable. IMPRESSION:Unremarkable radiographic examination of the left knee.XR CHEST 2 VIEW *WW*2017-02-01 07:29:51Location code: [id number]: chest painTECHNIQUE: Frontal and lateral views of the chest were obtained. Comparison to March 2012FINDINGS: The cardiomediastinal silhouette is unremarkable. The trachea ismidline. The lungs are clear. There is no effusion or pneumothorax. The bonesare intact.IMPRESSION: No acute pulmonary process.
[2024-07-23 09:43] LABS: Absolute Basophils 0.1 K/uL (0-0.5); Absolute Eosinophils 0.3 K/uL (0-0.5); Absolute Lymphocytes (CBC) 2.3 K/uL (0.7-4.9); Absolute Monocytes 0.4 K/uL (0.1-1.3); Absolute Neutrophil 3.4 K/uL (1.8-8.0); Eosinophils % 5.1 % (0-4.4); Hematocrit 35.4 % (36.0-45.0); Hemoglobin 11.8 g/dL (12.0-15.0); Lymphocytes % 35.6 % (15.3-44.8); MCH 27.1 pg (27.0-35.0); MCHC 33.3 g/dL (32.0-36.0); MCV 81.2 fL (80-100); MPV 7.5 fL (7.6-11.3); Monocytes % 6.1 % (3.3-12.3); Neutrophils % 52.2 % (41.7-73.7); Platelets 276 thou/uL (152-406); RBC Red Blood Cell Count 4.37 M/uL (3.86-4.86); Red Cell Distribution Width 18.4 % (12.1-15.2)
[2024-07-23] MEDS ORDERED: ONDANSETRON 4 MG/2 ML VIAL ONE (09:50)
[2024-07-23] MEDS ORDERED: KETOROLAC 30 MG/ML INJ ONE (09:50)
--- NOTE | 2024-07-23 09:51 | RAD REPORT ---
EXAM: Chest Single View HISTORY: 39 years Female COUGH COMPARISON: 09/08/2023 FINDINGS: LUNGS/PLEURA: The lungs are clear. No pleural effusions or pneumothorax. No pulmonary edema. CARDIAC/MEDIASTINUM: The cardiac silhouette is within normal limits. UPPER ABDOMEN: No significant abnormality. BONES: No acute abnormality. LINES/TUBES/OTHER: N/A IMPRESSION: No evidence of acute cardiopulmonary disease.
[2024-07-23 09:57] LABS: Anion Gap 6.1 mEq/L (5.0-15.0); BUN Blood Urea Nitrogen 11 mg/dL (7-18); Bicarbonate 27 mEq/L (21-32); Glomerular Filtration Rate 69 ml/min (=/>90); Glucose Level 86 mg/dL (74-106); Potassium 4.1 mEq/L (3.5-5.1); Sodium Level 139 mEq/L (136-145)
[2024-07-23 09:58] LABS: Troponin High Sensitivity < 3.0 pg/mL (<58.9)
--- NOTE | 2024-07-23 10:04 | ER ---
Nurse's Notes [facility] Name: Elisa Mesa Age: 39 yrs Sex: Female : 1985 Arrival Date: 07/23/2024 Time: 08:25 Bed 17 Private MD: Diagnosis: Chest pain, unspecified Presentation: 07/23 08:43 Chief complaint: Sharp left sided chest pain and nausea since 0500 today. Coronavirus hb screen: At this time, the client does not indicate any symptoms associated with coronavirus-19. Ebola Screen: No symptoms or risks identified at this time. Initial Sepsis Screen: Does the patient meet any 2 criteria? No. Patient's initial sepsis screen is negative. Does the patient have a suspected source of infection? No. Patient's initial sepsis screen is negative. Risk Assessment: Do you want to hurt yourself or someone else? Patient reports no desire to harm self or others. Onset of symptoms was July 23, 2024. 08:43 Method Of Arrival: Ambulatory hb 08:43 Acuity: LINDSEY 3 hb Historical: - Allergies: 08:44 No Known Allergies; hb - Home Meds: 08:44 None [Active]; hb - PMHx: 08:44 None; hb - PSHx: 08:44 None; hb - Immunization history:: Adult Immunizations up to date. - Infectious Disease History:: Denies. - Social history:: Smoking status: Patient reports the use of cigarette tobacco products. Screenin:30 [facility] ED Fall Risk Assessment (Adult) History of falling in the last 3 months, db including since admission No falls in past 3 months (0 pts) Confusion or Disorientation No (0 pts) Intoxicated or Sedated No (0 pts) Impaired Gait No (0 pts) Mobility Assist Device Used No (0 pt) Altered Elimination No (0 pt) Score/Fall Risk Level 0 - 2 = Low Risk Oriented to surroundings, Maintained a safe environment. Abuse screen: Denies threats or abuse. Denies injuries from another. Nutritional screening: No deficits noted. Tuberculosis screening: No symptoms or risk factors identified. Assessment: 09:30 Reassessment: Patient appears in no apparent distress at this time. Patient and/or db family updated on plan of care and expected duration. Pain level reassessed. Patient is alert, oriented x 3, equal unlabored respirations, skin warm/dry/pink. General: Appears in no apparent distress. comfortable, Behavior is calm, cooperative. Pain: Complains of pain in chest Pain does not radiate. Pain began suddenly. Cardiovascular: Reports chest pain. 10:53 Reassessment: PRIOR TO LEAVING PATIENT NOW COMPLAINING OF CHEST PAIN THAT IS RADIATING db DOWN HER LEFT ARM. PT COMFORTABLE RELAXED AND USING PHONE. NO DISTRESS. NOTIFIED DR. CHAVIRA. Neuro: Level of Consciousness is awake, alert, obeys commands, Oriented to person, place, time, situation. 12:30 Reassessment: Patient appears in no apparent distress at this time. Patient and/or db family updated on plan of care and expected duration. Pain level reassessed. Patient is alert, oriented x 3, equal unlabored respirations, skin warm/dry/pink. Patient states feeling better. Patient states symptoms have improved. Vital Signs: 08:43 BP 125 / 91; Pulse 84; Resp 16; Temp 98.4(O); Pulse Ox 100% ; Weight 90.72 kg; Height 5 hb ft. 6 in. ; Pain 6/10; 09:30 BP 124 / 85; Pulse 61; Resp 16; Pulse Ox 100% on R/A; db 10:05 BP 115 / 97; Pulse 62; Resp 16; Pulse Ox 100% on R/A; db 10:50 BP 123 / 92; Pulse 53; Resp 16; Pulse Ox 100% ; db 08:43 Body Mass Index 32.28 (90.72 kg, 167.64 cm) hb 08:43 Pain Scale: Adult hb ED Course: 08:27 Patient arrived in ED. im 08:31 Nacho Chavira MD is Attending Physician. ec2 08:44 Triage completed. hb 08:44 Arm band placed on. hb 08:44 EKG done, by ED staff, reviewed by Nacho Chavira MD. hb 09:01 Nacho Chavira MD is Referral Physician. ec2 09:25 Aurora Lawrence, LAYNE is Primary Nurse. db 09:30 Patient has correct armband on for positive identification. Bed in low position. Call db light in reach. Side rails up X 1. Client placed on continuous cardiac and pulse oximetry monitoring. NIBP monitoring applied. monitoring manager on. Pulse ox on. NIBP on. Warm blanket given. Pillow given. 09:30 No provider procedures requiring assistance completed. Patient maintains SpO2 db saturation greater than 95% on room air. 09:33 Initial lab(s) drawn, by me. Inserted saline lock: 20 gauge in left antecubital area, em1 using aseptic technique. Blood collected. Flushed with 10 mL NS. 09:34 Basic Metabolic Panel Sent. em1 09:34 CBC with Diff Sent. em1 09:34 Troponin HS Sent. em1 09:43 XRAY Chest (1 view) In Process Unspecified. EDMS 10:03 Nacho Chavira MD is Referral Physician. ec2 12:01 Nacho Chavira MD is Referral Physician. ec2 12:29 Provided Education on: DISCHARGE AND FOLLOWUP. db 12:29 IV discontinued, intact, bleeding controlled, No redness/swelling at site. db Administered Medications: 09:45 Drug: Ondansetron IVP 4 mg IVP once; over 2 minutes Route: IVP; Site: left forearm; db 12:29 Follow up: Response: No adverse reaction db 09:45 Drug: Ketorolac IVP 15 mg IVP once Route: IVP; Site: left forearm; db 12:29 Follow up: Response: No adverse reaction db 11:20 Drug: Famotidine IVP 20 mg IVP once; dilute with 10 mL 0.9% NaCl; give over 2 minutes db Route: IVP; Site: left forearm; 12:28 Follow up: Response: No adverse reaction db 11:20 Drug: GI Cocktail with - (Maalox PO 30 ml, Lidocaine Mucous Membrane 2 % 20 db ml, Phenobarbital-Belladonna PO 10 ml) PO once Route: PO; 12:29 Follow up: Response: No adverse reaction db Medication: 12:30 VIS not applicable for this client. db Outcome: 09:01 Discharge ordered by . ec2 10:03 Discharge ordered by . ec2 12:01 Discharge ordered by . ec2 12:29 Discharged to home ambulatory, db 12:29 Condition: stable 12:29 Discharge instructions given to patient, Instructed on discharge instructions, follow up and referral plans. Prescriptions given X 2, 12:30 Patient left the ED. db Signatures: Dispatcher [employer] EDCT Reynold Worrell em1 Valery Mandel RN RN Aurora Lawrence RN RN Sydni Perez Edwin, MD MD ec2
--- NOTE | 2024-07-23 10:04 | EDPHYS ---
Physician Documentation [facility] Name: Elisa Mesa Age: 39 yrs Sex: Female : 1985 Arrival Date: 07/23/2024 Time: 08:25 Bed 17 Private MD: ED Physician Nacho Chavira HPI: 07/23 08:46 This 39 yrs old Black Female presents to ER via Ambulatory with complaints of Chest ec2 Pain, Congestion, Nausea. 08:46 Patient arrives today for left upper chest pain. Patient reports that she has been ec2 experiencing chest pain since approximately 4 hours prior to arrival. Patient reports no specific alleviating or exacerbating factors. Patient reports she is also been having some issues with cough and congestion ongoing for the past several months. Patient reports that she does smoke regularly. No fevers or chills, does complain of some nausea, no vomiting, no diarrhea issues. Patient reports that she is a regular smoker. Reports no medication allergies.. Historical: - Allergies: 08:44 No Known Allergies; hb - Home Meds: 08:44 None [Active]; hb - PMHx: 08:44 None; hb - PSHx: 08:44 None; hb - Immunization history:: Adult Immunizations up to date. - Infectious Disease History:: Denies. - Social history:: Smoking status: Patient reports the use of cigarette tobacco products. ROS: 08:46 Constitutional: as per hpi ec2 Exam: 08:46 Constitutional: GEN: NAD Head: atraumatic Eyes: EOMI Ears: External ears are ec2 normal. CV: regular rate LUNGS: no respiratory distress, occasional scattered wheeze noted. ABD: non-distended SKIN: no evidence of rashes MSK: no evidence of trauma Vital Signs: 08:43 BP 125 / 91; Pulse 84; Resp 16; Temp 98.4(O); Pulse Ox 100% ; Weight 90.72 kg; Height 5 hb ft. 6 in. ; Pain 6/10; 09:30 BP 124 / 85; Pulse 61; Resp 16; Pulse Ox 100% on R/A; db 10:05 BP 115 / 97; Pulse 62; Resp 16; Pulse Ox 100% on R/A; db 10:50 BP 123 / 92; Pulse 53; Resp 16; Pulse Ox 100% ; db 08:43 Body Mass Index 32.28 (90.72 kg, 167.64 cm) hb 08:43 Pain Scale: Adult hb MDM: 08:31 Medical Screening Exam initiated ec2 08:47 Data reviewed: vital signs, nurses notes. ED course: Patient arrives today for the ec2 patient arrives today for evaluation of chest pain and congestion along with nausea. Examination is revealing for nontoxic hemodynamically stable individuals otherwise in no acute distress with a reassuring examination. Will obtain a cardiac workup. DDx includes undiagnosed COPD, ACS, costochondritis, pneumonia.. 08:49 ED course: EKG independently reviewed and interpreted by me, shows normal sinus rhythm, ec2 rate of 68, no acute ST segment elevations, intervals are nonactionable.. 10:03 ED course: Metabolic profile is reassuring, CBC is nonactionable, troponin is within ec2 normal ranges, chest x-ray shows no acute intrathoracic process. On reassessment patient is well-appearing no acute distress. Will discharge home. Will have her follow-up PCP. No evidence of ACS, doubt PE, doubt dissection. I will prescribe the patient Zofran as needed for nausea.. 10:53 ED course: Patient reported significant improvement and resolution of her symptoms, ec2 just prior discharge reports that she has recurrence of chest pain. Will obtain repeat EKG and troponin.. 11:05 ED course: Repeat EKG independently reviewed and interpreted by me, shows normal sinus ec2 rhythm, rate of 61, no acute ST segment elevations, intervals are nonactionable. Pending repeat troponin. Will treat the patient with Pepcid as well as Maalox.. 07/23 08:45 Order name: Basic Metabolic Panel; Complete Time: 10:02 ec2 07/23 08:45 Order name: CBC with Diff; Complete Time: 10:02 ec2 07/23 08:45 Order name: Troponin HS; Complete Time: 10:02 ec2 07/23 10:52 Order name: Troponin High Sensitivity; Complete Time: 11:35 ec2 07/23 08:45 Order name: XRAY Chest (1 view); Complete Time: 10:02 ec2 07/23 08:45 Order name: Cardiac monitoring; Complete Time: 09:40 ec2 07/23 08:45 Order name: EKG - Nurse/Tech; Complete Time: 09:34 ec2 07/23 08:45 Order name: IV Saline Lock; Complete Time: 09:34 ec2 07/23 08:45 Order name: Labs collected and sent; Complete Time: 09:34 ec2 07/23 08:45 Order name: O2 Per Protocol; Complete Time: 09:41 ec2 07/23 08:45 Order name: O2 Sat Monitoring; Complete Time: 09:34 ec2 07/23 10:52 Order name: EKG - Nurse/Tech; Complete Time: 11:25 ec2 Administered Medications: 09:45 Drug: Ondansetron IVP 4 mg IVP once; over 2 minutes Route: IVP; Site: left forearm; db 12:29 Follow up: Response: No adverse reaction db 09:45 Drug: Ketorolac IVP 15 mg IVP once Route: IVP; Site: left forearm; db 12:29 Follow up: Response: No adverse reaction db 11:20 Drug: Famotidine IVP 20 mg IVP once; dilute with 10 mL 0.9% NaCl; give over 2 minutes db Route: IVP; Site: left forearm; 12:28 Follow up: Response: No adverse reaction db 11:20 Drug: GI Cocktail with - (Maalox PO 30 ml, Lidocaine Mucous Membrane 2 % 20 db ml, Phenobarbital-Belladonna PO 10 ml) PO once Route: PO; 12:29 Follow up: Response: No adverse reaction db Disposition Summary: 07/23/24 12:01 Discharge Ordered Notes: Location: Home(07/23/24 12:01) ec2 Condition: Stable(07/23/24 12:01) ec2 Diagnosis - Chest pain, unspecified(07/23/24 12:01) ec2 Followup: ec2 - With: Nacho Chavira MD - When: - Reason: Re-evaluation by your physician Discharge Instructions: - Discharge Summary Sheet ec2 Forms: - Work release form db - Medication Reconciliation Form ec2 - Antibiotic Education ec2 - Prescription Opioid Use ec2 - Patient Portal Instructions ec2 - Leadership Thank You Letter ec2 Prescriptions: - Protonix 40 mg Oral Tablet - take 1 tablet ORAL route once daily; 30 tablet; Refills: 0, Product Selection ec2 Permitted Signatures: Dispatcher [facility] Valery Lambert RN RN Aurora Lawrence RN RN db Corral, Edwin, MD MD ec2 Corrections: (The following items were deleted from the chart) 08:46 08:46 BASIC METABOLIC PANEL+C.LAB.BRZ ordered. EDMS EDMS 08:46 08:46 CBC+H.LAB.BRZ ordered. EDMS EDMS 08:46 08:46 Troponin High Sensitivity+C.LAB.BRZ ordered. EDMS EDMS 08:46 08:46 Chest Single View+RAD.RAD.BRZ ordered. EDMS EDMS 09:01 09:01 Home ec2 ec2 09:01 09:01 Stable ec2 ec2 09:01 09:01 Chest pain, unspecified ec2 ec2 10:52 10:03 Home ec2 ec2 10:52 10:03 Stable ec2 ec2 10:52 10:03 Chest pain, unspecified ec2 ec2
[2024-07-23] MEDS ORDERED: LIDOCAINE VISCOUS 2% 10ML ORAL SOLN ONE (11:28)
[2024-07-23] MEDS ORDERED: FAMOTIDINE 20 MG/2 ML VIAL IV ONE (11:28)
[2024-07-23] MEDS ORDERED: MAGNES/ALUMIN/SIMET 30ML UCUP ONE (11:28)
[2024-07-23 12:35] VITALS: TEMP 98.4; O2SAT 100
[2024-07-23 12:39] VITALS: BP 123/92
--- NOTE | 2024-07-26 12:10 | EKG ---
Test Date: 2024-07-23 Test Time: 08:46:06 Field Traffic Investigator: HB MEASUREMENT RESULTS: Intervals: Rate: 68 NH: 150 QRSD: 82 QT: 374 QTc: 397 Slade: P: 69 NH: 150 QRS: 51 T: -14 INTERPRETIVE STATEMENTS: Normal sinus rhythm T wave abnormality, consider inferior ischemia T wave abnormality, consider anterior ischemia Abnormal ECG Compared to ECG 09/08/2023 07:54:01 T-wave abnormality now present Possible ischemia now present Sinus bradycardia no longer present Electronically Signed On 07-26-24 12:03:05 CDT by Harry Mchugh
== END 2024-07-23 12:30 | disposition home or self-care (01) ==
LOC: ER 08:25
DX: R07.9 Chest pain, unspecified (principal); Z72.0 Tobacco use
CPT/HCPCS: 36415; 71045; 80048; 84484; 85025; 93005; 96374; 96375; 99285; J2405